=== PATIENT | female | born 1990 | race Caucasian/White ===

== ENCOUNTER 2019-11-28 17:40 | Inpatient (IN) | payer OTHER, SELFPAY ==
[2019-11-28] VITALS (10 sets, daily range): BP systolic 91–131; BP diastolic 37–86; PULSE 109–121; TEMP 37.4; BMI 49.5
[2019-11-28 18:52] LABS: Basophils Percent Auto 0.3 % (0.2-1.2); Eosinophils Absolute Auto 0.1 K/mm3 (0-0.3); Eosinophils Percent Auto 0.6 % (0-4.4); Hematocrit 39.4 % (37.0-47.0); Hemoglobin 13.4 g/dL (12.0-15.0); Immature Granulocyte Absolute 0.05 K/mm3 (0.00-0.031); Immature Granulocyte Percent A 0.4 % (0-0.5); Lymphocytes Absolute Auto 1.95 K/mm3 (0.9-3.2); Mean Corpuscular Hemoglobin 31.2 pg (26-34); Mean Corpuscular Volume 91.6 fl (80-100); Monocytes Absolute Auto 0.9 K/mm3 (0.1-0.6); Monocytes Percent Auto 6.1 % (2.6-8.5); Neutrophils Percent Auto 78.6 % (45.5-73.1); Platelet Count Result 232 k/mm3 (150-375); White Blood Count 13.9 K/mm3 (4.5-10.0)
[2019-11-28 19:04] LABS: Blood Urea Nitrogen 11 mg/dL (7-17); Carbon Dioxide 18 mmol/L (22-30); Chloride 109 mmol/L (98-107); Estimated CRCL calculation 157 ml/min; Estimated Glomerular Filt Rate > 60; Glucose 97 mg/dL (65-105); Potassium 3.7 mmol/L (3.4-5.0); Sodium 135 mmol/L (137-145)
[2019-11-28] MEDS: DINOPROSTONE 10 MG VAG INSERT VAGINAL (19:17)
[2019-11-28] MEDS: ZOLPIDEM TARTRATE 5 MG TABLET PO (22:21)
[2019-11-29] VITALS (261 sets, daily range): BP systolic 86–172; BP diastolic 43–153; PULSE 91–144; TEMP 36.4–37.7; O2SAT 94–100
[2019-11-29 03:10] LABS: Alanine Aminotransferase 15 U/L (4-35); Albumin Level 3.3 g/dL (3.5-5.1); Alkaline Phosphatase 161 U/L (38-126); Aspartate Amino Transferase 26 U/L (14-36); Bilirubin,Total 0.3 mg/dL (0.2-1.3); Blood Urea Nitrogen 11 mg/dL (7-17); Carbon Dioxide 19 mmol/L (22-30); Chloride 108 mmol/L (98-107); Estimated CRCL calculation 157 ml/min; Estimated Glomerular Filt Rate > 60; Glucose 115 mg/dL (65-105); Potassium 3.9 mmol/L (3.4-5.0); Sodium 135 mmol/L (137-145)
[2019-11-29] MEDS: FAMOTIDINE 20 MG/2 ML VIAL IV PUSH ×2 (05:23→21:01)
[2019-11-29] MEDS: LACTATED RINGERS 1,000 ML 125 ML IV CONT ×3 (05:46→19:40)
[2019-11-29] MEDS: OXYTOCIN 30 UNITS/NS 500 ML 30 UNITS/500 ML BAG IV CONT (05:47)
--- NOTE | 2019-11-29 06:40 | PM.IMHP ---
H&P: HPI History of Present Illness Chief complaint: Induction of Labor Narrative: Anabel Hoff is a 29 year old female whose last menstrual period is 03/01/2019, EDC is 12/06/2019, presents at 30 weeks gestation for induction of labor. She has had mildly elevated blood pressures with negative PIH labs. She is negative for group B strep Review of Systems Review of Systems: All systems reviewed & are unremarkable except as noted in HPI and below PMFSH Family History Family History Other No pertinent family history Social History Social History Smoking status: Never smoker Substance use: never Gender identity (if verbalized by the patient): Female Spiritual care concerns: No Meds Home Medications and Allergies Home Medications Medication Instructions Recorded Confirmed Type PNV cmb#95-ferrous fumarate-FA 1 tablet PO DAILY 11/10/19 11/10/19 History [] omeprazole 20 mg PO DAILY 11/10/19 11/10/19 History Allergies Allergy/AdvReac Type Severity Reaction Status Date / Time No Known Allergies Allergy Verified 11/10/19 14:33 Vital Signs Vital Signs - 24 hr 11/28/19 18:51 11/28/19 19:00 11/28/19 19:15 Temperature Pulse Rate 114 H 113 H 114 H Blood Pressure 129/86 126/86 131/85 11/28/19 19:26 11/28/19 20:27 11/28/19 20:30 Temperature 99.4 F Pulse Rate 117 H 121 H Blood Pressure 127/77 91/37 L 11/28/19 20:45 11/28/19 21:00 11/28/19 21:15 Temperature Pulse Rate 111 H 109 H 112 H Blood Pressure 116/73 124/73 121/71 11/28/19 23:54 11/29/19 00:16 11/29/19 01:13 Temperature 99.3 F 99.7 F H Pulse Rate 119 H Blood Pressure 117/61 11/29/19 02:32 11/29/19 02:48 11/29/19 03:50 Temperature 98.5 F Pulse Rate 115 H 114 H Blood Pressure 135/93 H 120/52 L 11/29/19 05:27 11/29/19 05:28 11/29/19 06:36 Temperature 98.6 F Pulse Rate 118 H 134 H Blood Pressure 139/83 107/74 Exam Const: General: no acute distress Eyes: General: appearance normal, both eyes and all related structures Neck: Neck: supple and no JVD Thyroid: thyroid normal Resp: Effort & Inspection: normal respiratory effort Auscultation: clear to auscultation bilaterally Cardio: Rate: regular rate Rhythm: regular rhythm GI: Inspection: normal to inspection (Gravid soft uterus) Percussion: Yes normal to percussion Auscultation: normoactive bowel sounds : General: Yes other (Cervix 1/40%/-3. AROM bloody. FHTs reassuring) Skin: General skin exam: no rashes or lesions noted Extrem: General: normal to inspection and no edema Psych: Mental Status: mental status grossly normal Affect: normal affect H&P: Results Labs Labs: Short CBC 11/28/19 Range/Units 18:41 WBC 13.9 H (4.5-10.0) K/mm3 Hgb 13.4 (12.0-15.0) g/dL Hct 39.4 (37.0-47.0) % Plt Count 232 (150-375) k/mm3 BMP 11/28/19 11/29/19 18:41 02:44 Sodium 135 L 135 L Potassium 3.7 3.9 Chloride 109 H 108 H Carbon Dioxide 18 L 19 L BUN 11 11 Creatinine 0.50 L 0.50 L Glucose 97 115 H Calcium 9.0 9.0 Liver Function 11/29/19 Range/Units 02:44 Total Bilirubin 0.3 (0.2-1.3) mg/dL AST 26 (14-36) U/L ALT 15 (4-35) U/L Alkaline Phosphatase 161 H (38-126) U/L Albumin 3.3 L (3.5-5.1) g/dL Assessment and Plan Additional Plan Impression: Term with gestational hypertension Plan: Medical induction of labor. Spontaneous vaginal is expected. PIH labs were drawn and are normal. She has an epidural candidate
--- NOTE | 2019-11-29 07:15 | WPDANESEPP ---
Anes - Eval Pre Procedure Procedure: labor epidural Date/Time: 11/29/19 07:15 Surgeon: sherie Preop Diagnosis: pain during labor Pre Op Diagnosis: Induction of Labor Patient Data Age: 29 Gender: F Height: 1.52 m Weight: 115 kg Last Vital Signs Temp 37.0 C 11/29/19 05:27 Pulse 134 H 11/29/19 06:36 BP 107/74 11/29/19 06:36 Allergies Allergy/AdvReac Type Severity Reaction Status Date / Time No Known Allergies Allergy Verified 11/10/19 14:33 Home Medications Medication Instructions Recorded Confirmed Type PNV cmb#95-ferrous fumarate-FA 1 tablet PO DAILY 11/10/19 11/10/19 History [] omeprazole 20 mg PO DAILY 11/10/19 11/10/19 History Laboratory Tests 11/28/19 11/28/19 11/28/19 18:41 18:41 18:41 WBC 13.9 K/mm3 H K/mm3 (4.5-10.0) RBC 4.30 M/mm3 M/mm3 (4.2-5.4) Hgb 13.4 g/dL g/dL (12.0-15.0) Hct 39.4 % % (37.0-47.0) MCV 91.6 fl fl (80-100) MCH 31.2 pg pg (26-34) MCHC 34.0 g/dl g/dl (32-36) RDW 14.0 % % (11.5-14.5) Plt Count 232 k/mm3 k/mm3 (150-375) MPV 11.0 fl H fl (7.4-10.4) Immature Gran % (Auto) 0.4 % % (0-0.5) Neut % (Auto) 78.6 % H % (45.5-73.1) Lymph % (Auto) 14.0 % L % (18.3-44.2) [place] % (Auto) 6.1 % % (2.6-8.5) Eos % (Auto) 0.6 % % (0-4.4) Baso % (Auto) 0.3 % % (0.2-1.2) Lymph # (Auto) 1.95 K/mm3 K/mm3 (0.9-3.2) [place] # (Auto) 0.9 K/mm3 H K/mm3 (0.1-0.6) Eos # (Auto) 0.1 K/mm3 K/mm3 (0-0.3) Baso # (Auto) 0.0 K/mm3 K/mm3 (0.0-0.1) Abs Immat Gran (auto) 0.05 K/mm3 H K/mm3 (0.00-0.031) Absolute Neuts (auto) 11.0 K/mm3 H K/mm3 (1.3-6.7) Absolute Nucleated RBC 0.0 K/mm3 K/mm3 (0.0-0.012) Nucleated RBC % 0.0 % % (0.0-0.2) Sodium 135 mmol/L L mmol/L (137-145) Potassium 3.7 mmol/L mmol/L (3.4-5.0) Chloride 109 mmol/L H mmol/L (98-107) Carbon Dioxide 18 mmol/L L mmol/L (22-30) BUN 11 mg/dL mg/dL (7-17) Creatinine 0.50 mg/dL L mg/dL (0.7-1.0) Estim Creat Clear Calc 157 ml/min ml/min Estimated GFR > 60 (59 - ) Glucose 97 mg/dL mg/dL (65-105) Uric Acid 6.0 mg/dL mg/dL (2.5-7.5) Calcium 9.0 mg/dL mg/dL (8.4-10.2) Total Bilirubin AST ALT Alkaline Phosphatase Total Protein Albumin RPR Pending Blood Type Antibody Screen 11/28/19 11/29/19 18:41 02:44 WBC RBC Hgb Hct MCV MCH MCHC RDW Plt Count MPV Immature Gran % (Auto) Neut % (Auto) Lymph % (Auto) [place] % (Auto) Eos % (Auto) Baso % (Auto) Lymph # (Auto) [place] # (Auto) Eos # (Auto) Baso # (Auto) Abs Immat Gran (auto) Absolute Neuts (auto) Absolute Nucleated RBC Nucleated RBC % Sodium 135 mmol/L L mmol/L (137-145) Potassium 3.9 mmol/L mmol/L (3.4-5.0) Chloride 108 mmol/L H mmol/L (98-107) Carbon Dioxide 19 mmol/L L mmol/L (22-30) BUN 11 mg/dL mg/dL (7-17) Creatinine 0.50 mg/dL L mg/dL (0.7-1.0) Estim Creat Clear Calc 157 ml/min ml/min Estimated GFR > 60 (59 - ) Glucose 115 mg/dL H mg/dL (65-105) Uric Acid Calcium 9.0 mg/dL mg/dL (8.4-10.2) Total Bilirubin 0.3 mg/dL mg/dL (0.2-1.3) AST 26 U/L U/L (14-36) ALT 15 U/L U/L (4-35) Alkaline Phosphatase 161 U/L H U/L (38-126) Total Protein 6.0 g/dL L g/dL (6.3-8.2) Albumin 3.3 g/dL L g/dL (3.5-5.1) RPR
--- NOTE | 2019-11-29 13:10 | P.PNOB_ITS ---
OB - PN: Subj Subjective Date/time seen: 11/29/19 13:10 fhts reassuring iupc/epidural in Patient comments: no complaints OB - PN: Obj Data Labs CBC & Chem 7: 11/28/19 18:41 11/29/19 02:44 Labs: Laboratory Results - last 24 hr 11/28/19 11/28/19 11/28/19 18:41 18:41 18:41 WBC 13.9 H RBC 4.30 Hgb 13.4 Hct 39.4 MCV 91.6 MCH 31.2 MCHC 34.0 RDW 14.0 Plt Count 232 MPV 11.0 H Immature Gran % (Auto) 0.4 Neut % (Auto) 78.6 H Lymph % (Auto) 14.0 L [place] % (Auto) 6.1 Eos % (Auto) 0.6 Baso % (Auto) 0.3 Lymph # (Auto) 1.95 [place] # (Auto) 0.9 H Eos # (Auto) 0.1 Baso # (Auto) 0.0 Abs Immat Gran (auto) 0.05 H Absolute Neuts (auto) 11.0 H Absolute Nucleated RBC 0.0 Nucleated RBC % 0.0 Sodium 135 L Potassium 3.7 Chloride 109 H Carbon Dioxide 18 L BUN 11 Creatinine 0.50 L Estim Creat Clear Calc 157 Estimated GFR > 60 Glucose 97 Uric Acid 6.0 Calcium 9.0 Total Bilirubin AST ALT Alkaline Phosphatase Total Protein Albumin Blood Type O Positive Antibody Screen Negative 11/29/19 02:44 WBC RBC Hgb Hct MCV MCH MCHC RDW Plt Count MPV Immature Gran % (Auto) Neut % (Auto) Lymph % (Auto) [place] % (Auto) Eos % (Auto) Baso % (Auto) Lymph # (Auto) [place] # (Auto) Eos # (Auto) Baso # (Auto) Abs Immat Gran (auto) Absolute Neuts (auto) Absolute Nucleated RBC Nucleated RBC % Sodium 135 L Potassium 3.9 Chloride 108 H Carbon Dioxide 19 L BUN 11 Creatinine 0.50 L Estim Creat Clear Calc 157 Estimated GFR > 60 Glucose 115 H Uric Acid Calcium 9.0 Total Bilirubin 0.3 AST 26 ALT 15 Alkaline Phosphatase 161 H Total Protein 6.0 L Albumin 3.3 L Blood Type Antibody Screen OB - PN A/P Time Spent With Patient Time: Total time spent is greater than 50% in coordination of care (as documented) at patient's floor/unit and/or counseling patient:
[2019-11-29 13:21] LABS: Rapid Plasma Reagin Non-Reactive (NonReactive)
--- NOTE | 2019-11-29 16:09 | PM.OBPNVD ---
OB - PN: Subj Subjective Date/time seen: 11/29/19 16:09 cx 3.5 fhts reassuring increase pit OB - PN: Obj Data Labs CBC & Chem 7: 11/28/19 18:41 11/29/19 02:44 Labs: Laboratory Results - last 24 hr 11/28/19 11/28/19 11/28/19 18:41 18:41 18:41 WBC 13.9 H RBC 4.30 Hgb 13.4 Hct 39.4 MCV 91.6 MCH 31.2 MCHC 34.0 RDW 14.0 Plt Count 232 MPV 11.0 H Immature Gran % (Auto) 0.4 Neut % (Auto) 78.6 H Lymph % (Auto) 14.0 L [place] % (Auto) 6.1 Eos % (Auto) 0.6 Baso % (Auto) 0.3 Lymph # (Auto) 1.95 [place] # (Auto) 0.9 H Eos # (Auto) 0.1 Baso # (Auto) 0.0 Abs Immat Gran (auto) 0.05 H Absolute Neuts (auto) 11.0 H Absolute Nucleated RBC 0.0 Nucleated RBC % 0.0 Sodium 135 L Potassium 3.7 Chloride 109 H Carbon Dioxide 18 L BUN 11 Creatinine 0.50 L Estim Creat Clear Calc 157 Estimated GFR > 60 Glucose 97 Uric Acid 6.0 Calcium 9.0 Total Bilirubin AST ALT Alkaline Phosphatase Total Protein Albumin RPR Non-reactive Blood Type Antibody Screen 11/28/19 11/29/19 18:41 02:44 WBC RBC Hgb Hct MCV MCH MCHC RDW Plt Count MPV Immature Gran % (Auto) Neut % (Auto) Lymph % (Auto) [place] % (Auto) Eos % (Auto) Baso % (Auto) Lymph # (Auto) [place] # (Auto) Eos # (Auto) Baso # (Auto) Abs Immat Gran (auto) Absolute Neuts (auto) Absolute Nucleated RBC Nucleated RBC % Sodium 135 L Potassium 3.9 Chloride 108 H Carbon Dioxide 19 L BUN 11 Creatinine 0.50 L Estim Creat Clear Calc 157 Estimated GFR > 60 Glucose 115 H Uric Acid Calcium 9.0 Total Bilirubin 0.3 AST 26 ALT 15 Alkaline Phosphatase 161 H Total Protein 6.0 L Albumin 3.3 L RPR Blood Type O Positive Antibody Screen Negative OB - PN A/P Time Spent With Patient Time: Total time spent is greater than 50% in coordination of care (as documented) at patient's floor/unit and/or counseling patient:
[2019-11-30] VITALS (158 sets, daily range): BP systolic 76–168; BP diastolic 39–142; PULSE 25–253; RESP 16–20; TEMP 36.6–37.7; O2SAT 87–100
[2019-11-30] MEDS: LACTATED RINGERS 1,000 ML 125 ML IV CONT (01:05)
[2019-11-30] MEDS: AMPICILLIN 2 GM/NS 100 ML 2 GM/100 ML BAG IVPB (01:05)
[2019-11-30] MEDS: AMPICILLIN 1 GM/NS 50 ML 1 GM/50 ML BAG IVPB (04:31)
--- NOTE | 2019-11-30 06:08 | PM.OBPNVD ---
OB - PN: Subj Subjective Date/time seen: 11/30/19 06:08 Interval history: cx remains 4 cm offered section risks/benefits given OB - PN: Obj Data Labs CBC & Chem 7: 11/28/19 18:41 11/29/19 02:44 Labs: Laboratory Results - last 24 hr 11/28/19 18:41 RPR Non-reactive OB - PN A/P Time Spent With Patient Time: Total time spent is greater than 50% in coordination of care (as documented) at patient's floor/unit and/or counseling patient:
--- NOTE | 2019-11-30 06:42 | WPDANESEFPP ---
Anes - Eval Final PreProcedure Day of Procedure 11/30/19 06:42 Patient weight: morbidly obese Heart: regular rate and rhythm Lungs: clear to auscultation Airway: Mallampati scale class II Neurological: alert and oriented Last oral intake: >/= 8 hours ASA classification: III Emergent: no Anesthetic plan: proceed Anesthesia type and monitoring: regional epidural and standard monitoring Informed Consent: The patient's anesthetic plan and its attendant risks and benefits were discussed with the patient/family/POA. Questions were solicited and answers provided to the satisfaction of the patient/family/POA.
--- NOTE | 2019-11-30 07:37 | P.OP_ITS ---
Procedure Note - Detailed Date of procedure: 11/30/19 Pre-op diagnosis: Induction of Labor Surgeon: Dante Smith MD Postop diagnosis: Arrest of dilatation Procedure: Primary low transverse section Q BL: 370cc Anesthesia: Epidural Findings: Female infant 7 lb 13 oz. Apgars 5 and 9 at 1 and 5 minutes respectively Complications: None the Description of procedure: After failing induction of labor, the patient was brought to the operating room. She was placed in the door in the supine posit ion. Under excellent epidural anesthesia the abdomen was entered in Pfannenstiel fashion progressive layers to the fascia. The fascia was incised in upward outward fashion bilaterally. Underlying muscles sharply dissected. Parietal peritoneum entered by Glenna clamps and by sharp dissection. This carried superiorly and inferiorly to the dome of the bladder. Bladder blade was formed bladder blade returned. A low-transverse incision made and the head delivered in the BOZENA position. Anterior posterior shoulder delivered spontaneously. Cord clamped x2 and cut. Infant passed off the table given Apgars of 5 [id number] and 9 [id number]. Cord blood was drawn. Placenta delivered intact manually. Uterus delivered from the abdomen wrapped in a moist towel. After assuring no debris remained in the uterus, the uterus was closed with continuous with continuous running locking 0 Vicryl from lateral edge to lateral edge. This was followed by a 2nd imbricating running locking 0 Vicryl from lateral edge to lateral edge. Hemostasis was assured. The laps removed and accounted for. The ovaries and tubes appeared within normal limits. The uterus returned to the abdomen. The uterine hysterotomy incision inspected 1 last time and noted be hemostatic. The fascia closed with continuous running 0V Vicryl from lateral edge to midline bilaterally. Irrigation subcutaneous layer. Skin closed with 4 O Monocryl and glue. Q BL was 370cc. All sponge, needle, instrument counts were correct. There were no immediate complications
[2019-11-30] MEDS: MEPERIDINE HCL INJ 50 MG/ML AMPUL 25 MG IV PUSH (08:00)
--- NOTE | 2019-11-30 10:00 | OBPPTRN ---
Patient transferred to post room # 285 via stretcher. Support person present. Oriented to unit, room, information board, rooming in, admission packet and security measures. Patient verbalizes understanding.
[2019-11-30] MEDS: OXYTOCIN 30 UNITS/NS 500 ML 30 UNITS/500 ML BAG 125 UNITS IV CONT (12:18)
[2019-11-30] MEDS: IBUPROFEN 600 MG TABLET PO ×2 (12:20→21:12)
[2019-11-30] MEDS: DEXTROSE 5%/0.45% SOD CHL 1,000 ML 125 ML IV CONT (14:22)
[2019-11-30] MEDS: DOCUSATE SODIUM 100 MG CAPSULE PO (16:35)
[2019-11-30] MEDS: SIMETHICONE 80 MG TAB.CHEW PO (19:30)
[2019-12-01 03:50] VITALS: BP 92/58; PULSE 110; RESP 16; TEMP 36.3; O2SAT 97
[2019-12-01 03:50] LABS: Basophils Percent Auto 0.2 % (0.2-1.2); Eosinophils Absolute Auto 0.1 K/mm3 (0-0.3); Eosinophils Percent Auto 0.7 % (0-4.4); Hematocrit 32.7 % (37.0-47.0); Immature Granulocyte Percent A 0.6 % (0-0.5); Lymphocytes Percent Auto 10.6 % (18.3-44.2); Mean Corpuscular HGB Conc 33.6 g/dl (32-36); Mean Corpuscular Hemoglobin 31.5 pg (26-34); Mean Corpuscular Volume 93.7 fl (80-100); Mean Platelet Volume 10.9 fl (7.4-10.4); Monocytes Absolute Auto 1.4 K/mm3 (0.1-0.6); Monocytes Percent Auto 8.5 % (2.6-8.5); Neutrophils Absolute Auto 12.8 K/mm3 (1.3-6.7); Neutrophils Percent Auto 79.4 % (45.5-73.1); Platelet Count Result 184 k/mm3 (150-375); Red Blood Count 3.49 M/mm3 (4.2-5.4); Red Cell Distribution Width 14.1 % (11.5-14.5); White Blood Count 16.1 K/mm3 (4.5-10.0)
[2019-12-01] MEDS: IBUPROFEN 600 MG TABLET PO ×3 (04:01→22:51)
--- NOTE | 2019-12-01 06:45 | P.PNOB_ITS ---
OB - PN: Subj Subjective Date/time seen: 12/01/19 06:45 Patient comments: no complaints and pain well controlled baby status: doing well and nursing well OB - PN: Obj Data Labs CBC & Chem 7: 12/01/19 03:36 11/29/19 02:44 Labs: Laboratory Results - last 24 hr 12/01/19 03:36 WBC 16.1 H RBC 3.49 L Hgb 11.0 L Hct 32.7 L MCV 93.7 MCH 31.5 MCHC 33.6 RDW 14.1 Plt Count 184 MPV 10.9 H Immature Gran % (Auto) 0.6 H Neut % (Auto) 79.4 H Lymph % (Auto) 10.6 L [place] % (Auto) 8.5 Eos % (Auto) 0.7 Baso % (Auto) 0.2 Lymph # (Auto) 1.70 [place] # (Auto) 1.4 H Eos # (Auto) 0.1 Baso # (Auto) 0.0 Abs Immat Gran (auto) 0.10 H Absolute Neuts (auto) 12.8 H Absolute Nucleated RBC 0.0 Nucleated RBC % 0.0 OB - PN A/P Plan day: 1 Plan: routine care Time Spent With Patient Time: Total time spent is greater than 50% in coordination of care (as documented) at patient's floor/unit and/or counseling patient: Time with patient: less than 15 minutes Review of Systems Review of Systems: All systems reviewed & are unremarkable except as noted in HPI and below Exam Const: General: no acute distress Eyes: General: appearance normal, both eyes and all related structures Neck: Neck: supple and no JVD Thyroid: thyroid normal Resp: Effort & Inspection: normal respiratory effort Auscultation: clear to auscultation bilaterally Cardio: Rate: regular rate Rhythm: regular rhythm GI: Inspection: normal to inspection and incision (cdi) Percussion: Yes normal to percussion : General: Yes other (flow light) Skin: General skin exam: no rashes or lesions noted Extrem: General: normal to inspection and no edema Psych: Mental Status: mental status grossly normal Affect: normal affect
[2019-12-01 08:00] VITALS: BP 102/68; PULSE 68; RESP 18; TEMP 36.4
--- NOTE | 2019-12-01 08:15 | PC.NURSE ---
Mother called out for assist with feeding, reporting is not eagerly latching and using the nipple shield for all feedngs. Mother has discomfort with feeding and is on and off during feeding with long pausing. Both areolas are firm and edematous. Reviewed infant feeding cues, frequencies, duration of feedings, feeding elimination flow sheet, and signs of adequate intake. Demonstrated stimulation techniques to wake infant for feeding. Assisted with infant to breast. Reviewed positioning/alignment in football, holding breast in C hold and guided asymmetrical latch on. Several attempts made, was unable to latch correctly, infant could not draw nipple in deeply due to edema to areolas. Infant was sleepy and made minimal effort to latch or suckle. Discussed nipple shield precautions and possible complications. Instructions given on application and cleaning of shield. Patient able to return demonstration on proper application of shield. Discussed the need to initiate pumping if infant continues to nurse with the shield. Patient verbalizes understanding. With shield in place, was able to latch. Discussed infant is not latched a deeply as needed. Infant nursed eagerly for short bursts occasional swallowing noted. Reviewed signs of a correct latch, effective nursing and suck swallow ratio. Nipple care reviewed. Discussed feeding options at this time, parents choose to supplement after each feeding.
[2019-12-01] MEDS: DOCUSATE SODIUM 100 MG CAPSULE PO ×2 (08:16→17:18)
[2019-12-01] MEDS: MULTIVIT/MIN/PREN/FOL AC/IRON TABLET 1 TAB PO (08:16)
[2019-12-01] MEDS: SIMETHICONE 80 MG TAB.CHEW PO ×2 (08:16→17:17)
--- NOTE | 2019-12-01 09:10 | PC.NURSE ---
Assisted mother with pumping due to ineffective feeding/nipple shield use. Instructions given on breast pump care and usage, pumping schedule, nipple care, and collection and storage of breast milk. Encouraged [id number], breast massage and manual expression to stimulate supply. Assessed patient for correct flange size, placement and draw. Patient verbalizes and demonstrates understanding of instructions.
--- NOTE | 2019-12-01 09:22 | WPDANLDPN2 ---
Anes-Prog Note L&D Date/Time: 12/01/19 09:22 Comfortable throughout: section Neuraxial method: spinal Neuro status: Neuro function grossly intact. Cardiovascular status: normal Respiratory status: normal Airway patency: baseline Mental status: baseline Post-Op hydration status: normal Vital Signs: Last Vital Signs Temp 97.4 F L 12/01/19 03:50 Pulse 110 H 12/01/19 03:50 Resp 16 12/01/19 03:50 BP 92/58 L 12/01/19 03:50 Pulse Ox 97 12/01/19 03:50 I/O: Intake & Output 11/30/19 12/01/19 12/01/19 23:59 07:59 15:59 Intake Total 4800 1000 Output Total 2175 200 Balance 2625 800 Post-procedural complaints: none Patient feedback: Patient satisfied with anesthetic care.
--- NOTE | 2019-12-01 09:22 | WPDANLDNPN2 ---
Anes-Prog Note L&D-Neuraxial Date/Time: 12/01/19 09:22 Neuraxial medications: intrathecal PF morphine Opiod-related complaints: none Patient feedback: Patient satisfied with post-operative pain management.
--- NOTE | 2019-12-01 12:45 | PC.NURSE ---
Mother called out for assist with feeding. Several attempts made, was unable to latch correctly, could not draw nipple in deeply due to edema to areolas. was sleepy and made minimal effort to latch or suckle. With shield in place, was able to latch. Infant nursed sleepily for short bursts, occasional swallowing noted followed with long pausing. Reviewed signs of a correct latch, effective nursing and suck swallow ratio. Nipple care reviewed. Advised to stimulate during feeding to keep infant awake and nursing. Parents will continue to supplement after each feeding. Mother is pumping after each feeding attempt.
[2019-12-01 19:30] VITALS: BP 122/77; PULSE 113; RESP 16; TEMP 36.5; O2SAT 99
[2019-12-02] MEDS: MULTIVIT/MIN/PREN/FOL AC/IRON TABLET 1 TAB PO (07:07)
[2019-12-02] MEDS: DOCUSATE SODIUM 100 MG CAPSULE PO ×2 (07:07→17:03)
[2019-12-02] MEDS: IBUPROFEN 600 MG TABLET PO ×3 (07:08→20:20)
--- NOTE | 2019-12-02 07:12 | PM.DS ---
DS: Admitting Diagnosis Admitting Diagnosis Admitting Diagnosis: term/gest htn DS: Summary Time Spent with Patient Time attestation: Total time spent providing and/or coordinating discharge services: Exam Const: General: no acute distress Eyes: General: appearance normal, both eyes and all related structures Neck: Neck: supple and no JVD Thyroid: thyroid normal Resp: Effort & Inspection: normal respiratory effort Auscultation: clear to auscultation bilaterally Cardio: Rate: regular rate Rhythm: regular rhythm GI: Inspection: non-distended GI Palp: Yes Soft to palpation, No Tenderness to palpation present (GI) and No Guarding due to palpation present (GI) Auscultation: normal bowel sounds : General: Yes bladder normal to palpation External Female Exam: normal external appearance Speculum Exam - Vagina: normal vaginal discharge and No vaginal bleeding Speculum Exam - Cervix: nontender Bimanual exam- vagina & uterus: bladder normal to palpation and No Cervical tenderness present OB/external & speculum: No vaginal bleeding Skin: General skin exam: no rashes or lesions noted Extrem: General: normal to inspection and no edema Psych: Mental Status: mental status grossly normal Affect: normal affect Discharge Plan Discharge Attending physician on discharge: Dante Smith Discharging Clinician: Dante Smith Patient Disposition: Home, Self-Care Activity: may shower, no straining, may drive after 2 weeks and pelvic rest Diet: heart healthy Wound Care Instructions: follow printed instructions Discharge Instructions: Call or return if temperature above 100.4? F, increased abdominal pain, increased vaginal bleeding or any new problems. Education: Mom and Baby Guide Given to: Mother Follow-Up: Call your delivering provider's office for an appointment to be seen in: 1 Week Mom and baby should come to the [facility] for the follow-up appointment. Appointment Date/Time: December 06, 2019 at 11:00 am What to expect at your follow-up visit: Physical Assessment Call [phone] if you are unable to keep your appointment time. BREAST CARE: 1. Wear a snug supportive bra. 2. For engorgement discomfort: Breast Feeding: A. Apply warm moist washcloths B. Express milk as needed to relieve engorgement C. Wear loose clothing 3. For sore nipples: A. Identify correct latch-on B. Apply warm moist washcloths before and after nursing C. Air dry nipples after nursing D. May apply Lansinoh cream to nipples ABDOMINAL INCISION: 1. Allow incision to air dry 2. Do NOT use lotions for powders on your incision 3. When showering, allow soap and water to run over the incision, but do not wash incision PERINEAL CARE: 1. Until bleeding stops, use your felix bottle after urinating 2. Change your pad frequently throughout the day 3. No tub baths until seen by your physician - You may shower ACTIVITY: 1. Rest as much as possible. 2. Do not exercise or lift anything heavier than your baby (such as laundry or other children.) 3. Avoid stairs or driving as much as possible. 4. Do not put anything into the vagina. No douching, tampons, or sexual activity until seen by physician. NOTIFY PHYSICIAN IF YOU HAVE ANY QUESTIONS OR IF ANY OF THE FOLLOWING SYMPTOMS OCCUR: 1. If your incision becomes red, swollen, or more painful than what you have experienced in the hospital. 2. If your vaginal bleeding becomes foul smelling. 3. If your vaginal bleeding becomes more heavy than a period or if your bleeding changes from pink to bright red. However, you may pass an occasional walnut-sized clot once or twice for the first week . 4. If you experience a sharp, shooting pain in you calves. 5. If you discover a hard, reddened area on your breast or if you experience flu-like symptoms. DIET: 1. Eat regular, well-balanced meals. 2. Drink plenty
[2019-12-02 08:30] VITALS: BP 127/87; PULSE 109; RESP 18; TEMP 36.9; O2SAT 99
[2019-12-02] MEDS: TETANUS,DIPHTHERIA,AC PERTUSSIS ADULT (0.5 ML) BOOSTRIX IM (10:50)
--- NOTE | 2019-12-02 13:00 | PC.NURSE ---
Consult with pt., mother reports she has chosen to pump and bottle feed due to nipple pain with feedings,difficulties with latching and the stress of not effectively nursing. Mother states she may attempt infant to breast once her milk is in and is more awake and making eager attempts to feed. Stressed regular pumping of every three hours for 15-20 min. until milk is established, then follow feeding schedule. Mother is feeding as required and waking to feed if needed. is currently meeting outcomes for weight, output, jaundice and feeding frequencies. Mother states she feels confident to continue feeding choice of pump and bottle feeding at home. Reviewed transition to breast milk, signs of adequate intake, and engorgement/relief. Instructed to call ICP if intake/output less than required. Reviewed regular medications mother is taking. Information provided per Jannie. Reviewed community resources on the [facility] website and in the Mom/Baby guide. Information on outpatient services provided. Mother has no further questions at this time. Assisted mother with a pump thru her insurance.
[2019-12-02 19:00] VITALS: BP 126/85; PULSE 109; RESP 18; TEMP 36.9; O2SAT 100
--- NOTE | 2019-12-02 19:00 | PC.NURSE ---
Patient viewed the discharge video Mother & Baby Care, The First Two Weeks . Patient was given the opportunity and encouraged to ask questions. Patient verbalized understanding of information shared and has been given the mother/baby guide for home reference.
[2019-12-03] MEDS: IBUPROFEN 600 MG TABLET PO ×2 (02:18→09:23)
[2019-12-03 09:15] VITALS: BP 133/83; PULSE 123; RESP 18; TEMP 37.4; O2SAT 98
[2019-12-03] MEDS: MULTIVIT/MIN/PREN/FOL AC/IRON TABLET 1 TAB PO (09:23)
[2019-12-03] MEDS: MEASLES,MUMPS,RUBELLA VACCINE 0.5 ML VIAL (09:31)
--- NOTE | 2019-12-03 10:45 | PM.OBPNVD ---
OB - PN: Subj Subjective Date/time seen: 12/03/19 10:45 Narrative: Pain OK. Tolerating diet. Would like to go home. OB - PN: Obj Data Labs CBC & Chem 7: 12/01/19 03:36 11/29/19 02:44 OB - PN A/P Plan Comments: A: POD#3, doing well. P: Home to f/u 4 weeks. Exam Narrative: Exam Narrative: AVSS ABD soft, nontender, fundus firm. Incision c/d/i. EXT nontender
--- NOTE | 2019-12-03 14:50 | PC.NURSE ---
Computer generated paper script for Alexandria written per Dr Barraza was left on chart at pt's discharge to home because Motrin and Alexandria were transmitted to pt's pharmacy per Dr. Leos today.
[2019-12-06 10:55] VITALS: BP 123/82; PULSE 109; RESP 20; TEMP 37.2; O2SAT 98
== END 2019-12-03 14:50 | disposition home or self-care (01) | DRG 540 ==
LOC: ANHOB2 12-03 14:25 → ANHLDR 12-05 18:21 → ANHOB2 12-05 18:21
PROVIDERS: Admitting Provider Obstetrics & Gynecology; PCP Family Medicine; Visit Provider Obstetrics & Gynecology
PROC: 10D00Z1 Extraction of Products of Conception, Low, Open Approach (ICD-10-PCS; CPT 59514; principal; 2019-11-30 07:00)
DX: O13.4 Gestational [pregnancy-induced] hypertension without significant proteinuria, complicating childbirth (principal); Z37.0 Single live birth; Z3A.39 39 weeks gestation of pregnancy; O99.214 Obesity complicating childbirth; E66.01 Morbid (severe) obesity due to excess calories; O42.12 Full-term premature rupture of membranes, onset of labor more than 24 hours following rupture; O61.0 Failed medical induction of labor; O62.0 Primary inadequate contractions
CPT/HCPCS: 36415; 80048; 80053; 84550; 85025; 86592; 86850; 86900; 86901; 90710; 90715; A9270; J0131; J0290; J2175; J2274; J2405; J2590; J2795; J3010; J7120

== ENCOUNTER 2020-02-25 13:23 | Emergency (ER) | payer OTHER, SELFPAY ==
[2020-02-25 13:30] VITALS: BP 134/84; PULSE 81; RESP 16; TEMP 36.6; O2SAT 100
--- NOTE | 2020-02-25 14:06 | ED.DIZZY ---
HPI - Dizziness General Chief Complaint: Dizziness Stated Complaint: keith/nausea/dizzy Source: patient and RN notes reviewed Limitations: no limitations History of Present Illness HPI Narrative: The patient, previously mostly healthy, presents with a 3-day history of dizziness, tilted vision. Patient notes she is G1, P1 and had a term delivery ~3 months ago, followed by 2 menses-the last of which 3 weeks ago, which was very heavy [she declines urine hCG]. She now has a 3-day history of mostly positional dizziness which comes on as her surroundings are tilted, and 15 minutes. No fever, tinnitus, hearing loss, FMH M?ni?re's, head injury, N/V/D, frequency/dysuria, but she had a faint morning headache. No lateralizing weakness, speech?visual changes ,cough, sore throat, earache, loss of taste/smell, calf pain/edema, CP. Patient vies go to higher level facility for higher level testing [like anemia, metabolic, scanning], which she declines today Related Data Allergies Allergy/AdvReac Type Severity Reaction Status Date / Time No Known Allergies Allergy Verified 11/10/19 14:33 Review of Systems Review of Systems: Narrative: General/Constitutional: No weight loss,fever Eyes: N0: Redness,discharge Ears/Nose/Throat: No: Epistaxis,ear discharge Respiratory: Denies: Hemoptysis Gastrointestinal: No Vomiting, Bleeding-rectal Skin: No Lumps, eruption Neurologic: No Focal Weakness,Sz Hematologic: Denies: Petechiae/Purpura Psychiatric: No: Suicida ideationl All Other Systems: Reviewed and Negative [facility] Past Medical History Medical History (Updated 02/25/20 @ 14:10 by Manoj Cortez MD) Intrauterine Morbid obesity with BMI of 45.0-49.9, adult Social History Social History Smoking status: Never smoker Substance use: never Gender identity (if verbalized by the patient): Female Spiritual care concerns: No Comments At time of signature, agree with nursing past medical, surgical, social and family history. There is no relevant family history pertinent to the presenting complaint Exam Narrative: Exam Narrative: General Appearance: Well appearing, No distress EYE: PERRLA, Conjunctiva clear, EOMI Neurological: A&O x3, CN II-X intact; reflexes symmetric 1+ bi/tri Musculoskeletal: Full ROM limited by habitus, 5/5 strength Ears: External ear normal Nose: Normal nose Mouth/Throat: Normal appearing, Normal lips Neck: Supple Respiratory: Airway patent, No respiratory distress Skin: Warm, Dry Psychiatric: Normal mood, Normal affect Course Vital Signs Vital signs: Vital Signs Temperature 97.9 F 02/25/20 13:30 Pulse Rate 81 02/25/20 13:30 Respiratory Rate 16 02/25/20 13:30 Blood Pressure 134/84 02/25/20 13:30 Pulse Oximetry 100 02/25/20 13:30 Temperature 97.9 F 02/25/20 13:30 Pulse Rate 81 02/25/20 13:30 Respiratory Rate 16 02/25/20 13:30 Blood Pressure 134/84 02/25/20 13:30 Pulse Oximetry 100 02/25/20 13:30 Discharge Plan Discharge Clinical Impression: Peripheral positional vertigo Qualifiers: Laterality: unspecified laterality Qualified Code(s): H81.399 - Other peripheral vertigo, unspecified ear Patient Disposition: Home, Self-Care Condition: Stable Instructions: Vertigo (ED) Additional Instructions: Advised to go to higher-level care facility to higher level testing [blood, imaging] if not improved , because for early diagnosis of serious problems [anemia, metabolic, sinus lesions, etc], clear specific symptoms do not develop until later Prescriptions: New meclizine 12.5 mg tablet 12.5 mg PO TID PRN (Reason: dizziness) Qty: 14 RF: 1 Other Ambulatory Orders: SARS-CoV-2 RNA, Qual RT-PCR (Routine) Location: Determined by Patient Ordered By: Manoj Cortez Interventions: Discharge Disposition Last Done: 02/25/20 14:18 Follow-up/Referrals: Joe Emerson
== END 2020-02-25 14:20 | disposition home or self-care (01) ==
PROVIDERS: Emergency Provider Emergency Medicine; PCP Family Medicine
DX: H81.399 Other peripheral vertigo, unspecified ear (principal); Z20.828 Contact with and (suspected) exposure to other viral communicable diseases; E66.01 Morbid (severe) obesity due to excess calories; Z68.41 Body mass index [BMI] 40.0-44.9, adult
CPT/HCPCS: 99213; G0463

== ENCOUNTER 2020-03-02 14:11 | Outpatient (CLI) | payer OTHER, SELFPAY ==
[2020-03-03 18:02] LABS: SARS-CoV-2 RNA PCR Negative
== END 2020-03-02 14:12 | disposition home or self-care (01) ==
LOC: CHSLAB 14:14
PROVIDERS: PCP Family Medicine; Visit Provider Family Medicine
DX: J06.9 Acute upper respiratory infection, unspecified (principal); Z20.828 Contact with and (suspected) exposure to other viral communicable diseases
CPT/HCPCS: 87635; C9803; U0003

== ENCOUNTER 2020-06-25 13:38 | Outpatient (CLI) | payer OTHER, SELFPAY ==
[2020-06-25 14:26] LABS: SARS-CoV-2 Ag Negative (Negative)
== END 2020-06-25 13:39 | disposition home or self-care (01) ==
LOC: CHSLAB 13:42
PROVIDERS: PCP Family Medicine; Visit Provider Internal Medicine
DX: Z20.828 Contact with and (suspected) exposure to other viral communicable diseases (principal)
CPT/HCPCS: 87426; C9803

== ENCOUNTER 2020-06-26 13:03 | Outpatient (CLI) | payer OTHER, SELFPAY ==
[2020-06-26 23:29] LABS: SARS-CoV-2 RNA PCR Negative
== END 2020-06-26 13:04 | disposition home or self-care (01) ==
LOC: CHSLAB 13:08
PROVIDERS: PCP Family Medicine; Visit Provider Family Medicine
DX: Z20.828 Contact with and (suspected) exposure to other viral communicable diseases (principal)
CPT/HCPCS: C9803; U0003

== ENCOUNTER 2020-10-15 10:35 | Outpatient (CLI) | payer OTHER, SELFPAY ==
[2020-10-15 12:01] LABS: SARS-CoV-2 RNA PCR Negative (Negative)
== END 2020-10-15 10:36 | disposition home or self-care (01) ==
LOC: CHSLAB 10:37
PROVIDERS: PCP Family Medicine; Visit Provider Nurse Practitioner Family
DX: J06.9 Acute upper respiratory infection, unspecified (principal); Z20.822 Contact with and (suspected) exposure to COVID-19
CPT/HCPCS: 87081; 87880; C9803; U0003; U0005

== ENCOUNTER 2020-10-17 15:38 | Outpatient (CLI) | payer OTHER, SELFPAY | END 2020-10-17 15:39 | disposition home or self-care (01) | LOC: CHSLAB 15:40 | PROVIDERS: PCP Family Medicine; Visit Provider Family Medicine | DX: R05 Cough (principal) | CPT/HCPCS: 87798 ==

== ENCOUNTER 2020-10-26 09:53 | Outpatient (CLI) | payer BC, MEDICAID, SELFPAY ==
--- NOTE | ~2020-10-26 | XR_ITS ---
EXAMINATION: XR chest 2V DATE: 10/26/2020 10:31 INDICATION: Cough TECHNIQUE: PA and lateral views of the chest are obtained. COMPARISON: 10/24/2017 FINDINGS: The lungs are free of acute opacities. There is no pleural effusion or pneumothorax. The ca rdiomediastinal silhouette is normal. There is mild thoracic spondylosis. There is a catheter in the right neck. IMPRESSION: 1. No acute cardiopulmonary abnormality. Reviewed, dictated and finalized at location A.
== END 2020-10-26 09:54 | disposition home or self-care (01) ==
PROVIDERS: PCP Family Medicine; Visit Provider Family Medicine
DX: R05 Cough (principal)
CPT/HCPCS: 71046

== ENCOUNTER 2020-12-19 12:22 | Outpatient (CLI) | payer OTHER, SELFPAY ==
--- NOTE | ~2020-12-19 | XR_ITS ---
EXAMINATION: XR chest 2V DATE: 12/19/2020 12:53 INDICATION: Cough. Shortness of breath. TECHNIQUE: Frontal and lateral views of the chest were obtained. COMPARISON: Chest 2 views 10/26/2020, chest CT 10/24/2017 FINDINGS: The chest demonstrates clear lungs without pneumonia, pleural effusion, or pneumothorax. Th e heart size is normal. IMPRESSION: 1. No acute cardiopulmonary disease. Reviewed, dictated and finalized at location A.
[2020-12-19 13:40] LABS: SARS-CoV-2 RNA PCR Negative (Negative)
== END 2020-12-19 12:23 | disposition home or self-care (01) ==
LOC: CHSLAB 12:26
PROVIDERS: PCP Family Medicine; Visit Provider Family Medicine
DX: R05 Cough (principal); Z20.822 Contact with and (suspected) exposure to COVID-19
CPT/HCPCS: 71046; C9803; U0003; U0005

== ENCOUNTER 2021-01-14 07:49 | Outpatient (CLI) | payer OTHER, SELFPAY ==
--- NOTE | 2021-01-14 11:49 | WPDPFTINT ---
PFT Procedure Performed PFT Procedure Performed Spirometry with Pre/Post Bronchodilator Plethysmography (Lung Vol) Diffusing Cap (DLCO) Flow Vol Loop PFT Interpretation This is a pulmonary function test with pre and post-bronchodilator spirometry, plethysmography and diffusing capacity. The test was performed and results interpreted in accordance with the 2019 and 2005 ATS/ERS Task Force guidelines respectively using the Global Lung Function Initiative-2012 reference equations. Patient demonstrated good effort and cooperation. Reproducibility criteria were met. The quality of the pre bronchodilator spirometry maneuver was Grade A and post bronchodilator spirometry maneuver was Grade A. Findings: Spirometry: The contour the inspiratory and expiratory flow tracing are normal. The pre bronchodilator FVC is 3.30 L, 101% predicted. The pre bronchodilator FEV1 is 2.83 L, 102% predicted. The FEV1: FVC ratio was 86%. The post bronchodilator FVC is 3.54 L, representing a 7% increase. The post bronchodilator FEV1 is 2.92 L, representing a 3% increase. Plethysmography: The total lung capacity is 4.57 L, 103% predicted. The functional residual capacity is 1.36 L, 57% predicted. The residual volume is 0.87 L, 72% predicted. Diffusing capacity: The absolute diffusion capacity is 23.2, 102% predicted. The diffusing capacity corrected for alveolar volume is 4.70, 93% predicted. Impression: The spirometry is normal without evidence of an obstructive abnormality. There is no significant improvement after inhaling a single dose of albuterol. The lung volumes are normal. The diffusing capacity is normal. There are no prior studies for comparison
== END 2021-01-14 07:50 | disposition home or self-care (01) ==
PROVIDERS: PCP Family Medicine; Visit Provider Family Medicine
DX: J45.20 Mild intermittent asthma, uncomplicated (principal)
CPT/HCPCS: 94060; 94726; 94729

== ENCOUNTER 2021-05-22 17:54 | Outpatient (CLI) | payer OTHER, SELFPAY ==
[2021-05-22 18:57] LABS: Influenza A QL RT-PCR Negative (Negative); Influenza B QL RT-PCR Negative (Negative); SARS-CoV-2 RNA PCR Negative (Negative)
== END 2021-05-22 17:55 | disposition home or self-care (01) ==
LOC: CHSLAB 18:00
PROVIDERS: PCP Family Medicine; Visit Provider Family Medicine
DX: J00 Acute nasopharyngitis [common cold] (principal); Z20.822 Contact with and (suspected) exposure to COVID-19
CPT/HCPCS: 87502; C9803; U0003; U0005

== ENCOUNTER 2021-06-24 08:46 | Outpatient (CLI) | payer OTHER, SELFPAY ==
[2021-06-24 09:28] LABS: SARS-CoV-2 Ag Negative (Negative)
== END 2021-06-24 08:47 | disposition home or self-care (01) ==
LOC: CHSLAB 08:47
PROVIDERS: PCP Family Medicine; Visit Provider Family Medicine
DX: R05.9 Cough, unspecified (principal); Z20.822 Contact with and (suspected) exposure to COVID-19
CPT/HCPCS: 87426; C9803

== ENCOUNTER 2021-06-28 08:30 | Outpatient (CLI) | payer OTHER, MEDICAID, SELFPAY ==
[2021-06-28 10:12] LABS: SARS-CoV-2 Ag Negative (Negative)
[2021-06-28 10:34] LABS: Influenza Control Valid (Valid)
== END 2021-06-28 08:31 | disposition home or self-care (01) ==
LOC: CHSLAB 08:32
PROVIDERS: PCP Family Medicine; Visit Provider Family Medicine
DX: R05.9 Cough, unspecified (principal); R06.02 Shortness of breath; Z20.822 Contact with and (suspected) exposure to COVID-19
CPT/HCPCS: 87426; 87804; C9803

== ENCOUNTER 2021-09-10 13:02 | Observation (INO) | payer OTHER, SELFPAY ==
[2021-09-10 13:46] VITALS: BP 122/71; PULSE 114
[2021-09-10 14:00] VITALS: BP 110/67; PULSE 115; RESP 20; TEMP 36.8; BMI 52.2
--- NOTE | 2021-09-10 14:00 | OBADM ---
This patient, Anabel Hoff, admitted to the OB room 115 for observation for nausea, vomiting, and diarrhea. Patient/family oriented to hospital policies and general routines including ID bracelet, bed and alarms, visiting hours, pain management, procedures, bathroom and other care routines, personal items, smoking policy, room service/diet, and visiting hours. Patient/Family are encouraged to report perceived risks to care and to ask questions if they do not understand what they are told or what they should do.
[2021-09-10] MEDS: DEXTROSE 5%/LACTATED RINGERS 500 ML 999 ML IV CONT (14:25)
[2021-09-10] MEDS: ONDANSETRON INJ 4 MG/2 ML VIAL IV PUSH (14:27)
[2021-09-10] MEDS: FAMOTIDINE 20 MG/2 ML VIAL IV PUSH (14:29)
[2021-09-10 14:39] VITALS: BP 120/76; PULSE 108
[2021-09-10 14:52] LABS: Basophils Percent Auto 0.2 % (0.2-1.2); Eosinophils Absolute Auto 0.1 K/mm3 (0-0.3); Eosinophils Percent Auto 0.4 % (0-4.4); Hematocrit 38.7 % (37.0-47.0); Hemoglobin 12.8 g/dL (12.0-15.0); Immature Granulocyte Absolute 0.06 K/mm3 (0.00-0.031); Immature Granulocyte Percent A 0.4 % (0-0.5); Lymphocytes Absolute Auto 0.79 K/mm3 (0.9-3.2); Lymphocytes Percent Auto 5.7 % (18.3-44.2); Mean Corpuscular HGB Conc 33.1 g/dl (32-36); Mean Corpuscular Hemoglobin 29.4 pg (26-34); Mean Corpuscular Volume 88.8 fl (80-100); Mean Platelet Volume 10.6 fl (7.4-10.4); Monocytes Absolute Auto 0.7 K/mm3 (0.1-0.6); Monocytes Percent Auto 4.9 % (2.6-8.5); Neutrophils Absolute Auto 12.2 K/mm3 (1.3-6.7); Neutrophils Percent Auto 88.4 % (45.5-73.1); Platelet Count Result 263 k/mm3 (150-375); Red Blood Count 4.36 M/mm3 (4.2-5.4); Red Cell Distribution Width 13.5 % (11.5-14.5); White Blood Count 13.9 K/mm3 (4.5-10.0)
[2021-09-10 15:02] LABS: Alanine Aminotransferase 30 U/L (4-35); Alkaline Phosphatase 159 U/L (38-126); Anion Gap 11 mmol/L (8-16); Aspartate Amino Transferase 30 U/L (14-36); Bilirubin,Total 0.6 mg/dL (0.2-1.3); Blood Urea Nitrogen 12 mg/dL (7-17); Calcium 8.9 mg/dL (8.4-10.2); Carbon Dioxide 19 mmol/L (22-30); Chloride 106 mmol/L (98-107); Estimated Glomerular Filt Rate > 60; Glucose 75 mg/dL (65-110); Potassium 3.8 mmol/L (3.4-5.0); Sodium 136 mmol/L (137-145)
[2021-09-10] MEDS: CALCIUM CARBONATE (TUMS) 500 MG (200 MG ELEMENTAL) PO (15:27)
[2021-09-10 15:38] LABS: Influenza A QL RT-PCR Negative (Negative); Influenza B QL RT-PCR Negative (Negative); SARS-CoV-2 RNA PCR Negative
--- NOTE | 2021-09-10 16:09 | PC.NURSE ---
Dr. Cholo Goode called to check on pt. Informed pt hasn't had an emesis since the Zofran was given, but still having heartburn that makes her feel nauseated. Pt has had some ice chips and a jello. IV fluids infusing. Pt had a reactive NST and some uterine irritability that decreased with the IV fluids. Monitor was discontinued for pt comfort. OK to discharge pt to home when she is feeling up to it.
--- NOTE | 2021-09-10 16:42 | PC.NURSE ---
Pt informed me she is ready to go home. Pt has tolerated some saltines and another jello, but the applesauce increased her heartburn. No additional emesis.
--- NOTE | 2021-09-12 07:42 | PM.OBTRLD ---
OB - Triage/Final Diagnosis Visit Information Date of evaluation: 09/10/21 Reason for evaluation: other (dehydration) Comments/Additional reasons for admission: I have assessed the risk for this patient, Anabel Hoff, and determined that she would benefit from observation care. Evaluation Laboratory results: Laboratory Tests 09/10/21 09/10/21 09/10/21 14:34 14:35 14:49 WBC 13.9 H RBC 4.36 Hgb 12.8 Hct 38.7 MCV 88.8 MCH 29.4 MCHC 33.1 RDW 13.5 Plt Count 263 MPV 10.6 H Immature Gran % (Auto) 0.4 Neut % (Auto) 88.4 H Lymph % (Auto) 5.7 L [place] % (Auto) 4.9 Eos % (Auto) 0.4 Baso % (Auto) 0.2 Lymph # (Auto) 0.79 L [place] # (Auto) 0.7 H Eos # (Auto) 0.1 Baso # (Auto) 0.0 Abs Immat Gran (auto) 0.06 H Absolute Neuts (auto) 12.2 H Absolute Nucleated RBC 0.0 Nucleated RBC % 0.0 Sodium 136 L Potassium 3.8 Chloride 106 Carbon Dioxide 19 L Anion Gap 11 BUN 12 Creatinine 0.40 L Estim Creat Clear Calc Not Reportable Estimated GFR > 60 Glucose 75 Calcium 8.9 Total Bilirubin 0.6 AST 30 ALT 30 Alkaline Phosphatase 159 H Total Protein 7.0 Albumin 4.0 Urine Color Urine Appearance Urine pH Ur Specific [place] Urine Protein Urine Glucose (UA) Urine Ketones Ur Blood (Man) Urine Nitrate Urine Bilirubin Urine Urobilinogen Leukocyte Esterase Rfl Urine RBC Urine WBC Urine WBC Clumps Ur Squamous Epith Cells Ur Transition Epith Cell Ur Renal Epithelial Cell [place] Biurate Crystals Calcium Carbonate Cryst Calcium Phosphate Cryst Calcium Oxalate Crystal Leucine Crystals Cystine Crystals Uric Acid Crystals Triple Phos Crystals Sulfonamide Crystals Cholesterol Crystals Talc Crystals Tyrosine Crystals Hippuric Acid Crystals Other Crystals Amorphous Sediment Other Sediment Urine Bacteria Cellular Casts Epithelial Casts Fatty Casts Hyaline Casts Granular Casts Waxy Casts RBC Casts WBC Casts Urine Starch Urine Mucus Urine Trichomonas Urine Yeast (Budding) Ur Oval Fat Bodies Influenza A (RT-PCR) Negative Influenza B (RT-PCR) Negative SARS-CoV-2 RNA (RT-PCR) Negative 09/10/21 19:02 WBC RBC Hgb Hct MCV MCH MCHC RDW Plt Count MPV Immature Gran % (Auto) Neut % (Auto) Lymph % (Auto) [place]osh[place] % (Auto) Eos % (Auto) Baso % (Auto) Lymph # (Auto) [place] # (Auto) Eos # (Auto) Baso # (Auto) Abs Immat Gran (auto) Absolute Neuts (auto) Absolute Nucleated RBC Nucleated RBC % Sodium Potassium Chloride Carbon Dioxide Anion Gap BUN Creatinine Estim Creat Clear Calc Estimated GFR Glucose Calcium Total Bilirubin AST ALT Alkaline Phosphatase Total Protein Albumin Urine Color Cancelled Urine Appearance Cancelled Urine pH Cancelled Ur Specific [place] Cancelled Urine Protein Cancelled Urine Glucose (UA) Cancelled Urine Ketones Cancelled Ur Blood (Man) Cancelled Urine Nitrate Cancelled Urine Bilirubin Cancelled Urine Urobilinogen Cancelled Leukocyte Esterase Rfl Cancelled Urine RBC Cancelled Urine WBC Cancelled Urine WBC Clumps Cancelled Ur Squamous Epith Cells Cancelled Ur Transition Epith Cell Cancelled Ur Renal Epithelial Cell Cancelled [place] Biurate Crystals Cancelled Calcium Carbonate Cryst Cancelled Calcium Phosphate Cryst Cancelled Calcium Oxalate Crystal Cancelled Leucine Crystals Cancelled Cystine Crystals Cancelled Uric Acid Crystals Cancelled Triple Phos Crystals Cancelled Sulfonamide Crystals Cancelled Cholesterol Crystals Cancelled Talc Crystals Cancelled Tyrosine Crystals Cancelled Hippuric Acid Crystals Cancelled Other Crystals Cancelled Amorphous Sediment Cancelled Other Sediment Cancelled Urine Bacteria Cancelled Cellular Casts Cancelled Ep
== END 2021-09-10 17:18 | disposition home or self-care (01) ==
PROVIDERS: Admitting Provider Obstetrics & Gynecology; PCP Family Medicine; Visit Provider Obstetrics & Gynecology
DX: O99.283 Endocrine, nutritional and metabolic diseases complicating pregnancy, third trimester (principal); E86.0 Dehydration; Z3A.34 34 weeks gestation of pregnancy; Z20.822 Contact with and (suspected) exposure to COVID-19
CPT/HCPCS: 36415; 80053; 85025; 87502; 96361; 96374; 96375; A9270; C9803; G0378; G0379; J2405; J7121; U0003; U0005

== ENCOUNTER 2021-10-15 07:41 | Outpatient (CLI) | payer OTHER, SELFPAY ==
[2021-10-15 08:05] LABS: Hematocrit 34.6 % (37.0-47.0); Hemoglobin 11.3 g/dL (12.0-15.0); Mean Corpuscular HGB Conc 32.7 g/dl (32-36); Mean Corpuscular Hemoglobin 27.6 pg (26-34); Mean Corpuscular Volume 84.6 fl (80-100); Mean Platelet Volume 10.7 fl (7.4-10.4); Platelet Count Result 253 k/mm3 (150-375); Red Blood Count 4.09 M/mm3 (4.2-5.4); Red Cell Distribution Width 14.2 % (11.5-14.5); White Blood Count 10.6 K/mm3 (4.5-10.0)
[2021-10-15 11:23] LABS: Rapid Plasma Reagin Non-Reactive (NonReactive)
== END 2021-10-15 07:42 | disposition home or self-care (01) ==
LOC: ANHLAB 07:43
PROVIDERS: PCP Family Medicine; Visit Provider Obstetrics & Gynecology
DX: O34.219 Maternal care for unspecified type scar from previous cesarean delivery (principal); Z3A.00 Weeks of gestation of pregnancy not specified
CPT/HCPCS: 36415; 85027; 86592; 86850; 86900; 86901

== ENCOUNTER 2021-10-16 05:23 | Inpatient (IN) | payer OTHER, SELFPAY ==
[2021-10-16] VITALS (46 sets, daily range): BP systolic 62–215; BP diastolic 23–181; PULSE 74–274; RESP 8–20; TEMP 36.2–36.8; O2SAT 94–100; BMI 55.3
--- NOTE | 2021-10-16 05:37 | LDADM ---
This patient, Anabel Hoff, was admitted to Labor/Delivery/Recovery 120 on 10/16/21 at 05:23. Plans for labor, pain management and were discussed with patient. Patient/family oriented to hospital policies and general routines including ID bracelet, bed and alarms, visiting hours, pain management, procedures, bathroom and other care routines, personal items, smoking policy, room service/diet and guest tray routines, security routines, and visiting hours. Patient/Family are encouraged to report perceived risks to care and to ask questions if they do not understand what they are told or what they should do. See OBIX for further documentation.
[2021-10-16] MEDS: LACTATED RINGERS 1,000 ML 125 ML IV CONT ×2 (05:53→07:01)
--- NOTE | 2021-10-16 06:56 | WPDANESEPPF ---
Anes - Initial Pre Proc Eval Procedure: Operation Date: 10/16/21 07:30 Proposed Procedures p Repeat Section with Tubal Ligation - Dante Goode MD Date/Time: 10/16/21 06:56 Surgeon: Dante Goode MD Pre Op Diagnosis: C Section Patient Data Age: 31 Gender: F Height: 1.52 m Weight: 128.5 kg Last Vital Signs Pulse 99 10/16/21 05:46 BP 116/58 L 10/16/21 05:46 Allergies Allergy/AdvReac Type Severity Reaction Status Date / Time No Known Allergies Allergy Verified 09/10/21 16:26 Home Medications Medication Instructions Recorded Confirmed Type PNV cmb#95-ferrous fumarate-FA 1 tablet PO DAILY 09/10/21 10/11/21 History [] labetalol 100 mg PO 1300 09/10/21 10/11/21 History labetalol 200 mg PO Q12H 09/10/21 10/11/21 History omeprazole 20 mg PO DAILY 09/10/21 10/11/21 History albuterol 90 mcg INHALATION 4-6XD PRN 10/11/21 10/11/21 History Patient hx anesthesia problems: none Family hx anesthesia problems: none Results Review: All pre-operative results and documents have been reviewed as part of the pre-operative evaluation. [facility] Past Medical History Medical History (Updated 10/16/21 @ 06:57 by Justin Longoria MD) Asthma HTN (hypertension) Intrauterine Morbid obesity with BMI of 45.0-49.9, adult Family History Family History Other No pertinent family history Social History Social History (System 07/04/20 @ 10:51 by Shelby Fernández) Smoking status: Never smoker Substance use: never Gender identity (if verbalized by the patient): Female Spiritual care concerns: No Anes - Eval Final PreProcedure Day of Procedure 10/16/21 06:56 Patient weight: super morbidly obese Heart: regular rate and rhythm Lungs: clear to auscultation and normal air movement Airway: Mallampati scale class II Neurological: alert and oriented Last oral intake: >/= 8 hours ASA classification: III Emergent: no Anesthetic plan: proceed Anesthesia type and monitoring: regional spinal Results Review: All pre-operative results and documents have been reviewed as part of the pre-operative evaluation. Informed Consent: The patient's anesthetic plan and its attendant risks and benefits were discussed with the patient/family/POA. Questions were solicited and answers provided to the satisfaction of the patient/family/POA.
--- NOTE | 2021-10-16 07:26 | PM.IMHP ---
H&P: HPI History of Present Illness Date/Time: 10/16/21 07:26 30-year-old multipara term for repeat section bilateral tubal ligation. She has a large baby. She passed her 3hour are 1hour GTT she has had hypertension taking labetalol 100 t.i.d. with good control she also takes Wellbutrin 300mg daily. She desires permanent and irreversible sterilization and we reviewed risks and benefits of full Chief Complaint: repeat and tubal ligation Review of Systems Review of Systems: All systems reviewed & are unremarkable except as noted in HPI and below PMFSH Past Medical History Medical History Asthma HTN (hypertension) Intrauterine Morbid obesity with BMI of 45.0-49.9, adult Family History Family History Other No pertinent family history Social History Social History Smoking status: Never smoker Substance use: never Gender identity (if verbalized by the patient): Female Spiritual care concerns: No Meds Home Medications and Allergies Home Medications Medication Instructions Recorded Confirmed Type PNV cmb#95-ferrous fumarate-FA 1 tablet PO DAILY 09/10/21 10/11/21 History [] labetalol 100 mg PO 1300 09/10/21 10/11/21 History labetalol 200 mg PO Q12H 09/10/21 10/11/21 History omeprazole 20 mg PO DAILY 09/10/21 10/11/21 History albuterol 90 mcg INHALATION 4-6XD PRN 10/11/21 10/11/21 History Allergies Allergy/AdvReac Type Severity Reaction Status Date / Time No Known Allergies Allergy Verified 09/10/21 16:26 Vital Signs Vital Signs - 24 hr 10/16/21 05:43 10/16/21 05:46 Pulse Rate 103 H 99 Blood Pressure 113/62 116/58 L Exam Const: General: no acute distress Eyes: General: appearance normal, both eyes and all related structures Neck: Neck: supple and no JVD Thyroid: thyroid normal Resp: Effort & Inspection: normal respiratory effort Auscultation: clear to auscultation bilaterally Cardio: Rate: regular rate Rhythm: regular rhythm GI: Inspection: non-distended GI Palp: Yes Soft to palpation, No Tenderness to palpation present (GI) and No Guarding due to palpation present (GI) Auscultation: normal bowel sounds : General: Yes bladder normal to palpation External Female Exam: normal external appearance Speculum Exam - Vagina: normal vaginal discharge and No vaginal bleeding Speculum Exam - Cervix: nontender Bimanual exam- vagina & uterus: bladder normal to palpation and No Cervical tenderness present OB/external & speculum: No vaginal bleeding Skin: General skin exam: no rashes or lesions noted Extrem: General: normal to inspection and no edema Psych: Mental Status: mental status grossly normal Affect: normal affect Assessment and Plan Additional Plan term with previous section and desires permanent sterilization Plan: Repeat low-transverse section and bilateral tubal ligation
--- NOTE | 2021-10-16 07:28 | WPDHPUPDATE1 ---
History and Physical Update Update Date/Time: 10/16/21 07:28 History and Physical has been reviewed, including an updated exam of the patient. There are NO changes in the patient's condition. Risks, benefits, and alternatives have been discussed and questions answered. Patient agrees to proceed with procedure.
--- NOTE | 2021-10-16 08:28 | P.OP_ITS ---
Procedure Note - Detailed Date of Procedure 10/16/21 Pre-op Diagnosis C Section Bilateral tubal ligation via Lawrence method Post-op Diagnosis Same Procedure Performed repeat low-transverse section and bilateral tubal ligation via modified Nori method Surgeon Danet Goode MD Anesthesia Spinal Indications this is a 31-year-old at term with previous section, large baby and who desires permanent irvin Findings male 9lb 12oz Apgars 9 and 9 at 1 and 5minutes respectively. Fair amount of scar tissue was seen in the pelvis Description of Procedure patient was prepped and draped in the normal sterile fashion and placed in the supine position. The previous Pfannenstiel incision was entered in a sharp dissection carried through the layers to the fascia. Fascia incised in upward fashion a appeared underlying muscles show and sharply dissected in prep peritoneum elevated clamped. This was entered superiorly and inferiorly down the bladder. Fair amount of omentum was seen in this was sharply dissected and packed the back. The bladder blade was placed bladder flap formed and a bladder blade returned. A low-transverse incision made the head delivered in the BOZENA position. Nuchal cord checked noted be loose x1 around the occiput. Anterior posterior shoulder delivered spontaneously and cord clamped x2 and cut and passed off the table given Apgars of 9 [id number] and 9 [id number]. Cord blood was drawn placenta delivered intact manually. Uterus delivered abdomen wrapped in moist towel. After assuring no membranes or debris remained in the uterus, the uterus was closed with continuous running 0 Vicryl from lateral edge to midline bilaterally. Irrigation in the subcutaneous layer. The fascia was closed with continuous running 0 Vicryl from lateral edge to midline bilaterally. Irrigation the subcutaneous layer again was performed the skin closed with 4 Monocryl and glue. QBL was 430cc. All sponge, needle, instrument counts were correct. There were no immediate complications Estimated Blood Loss 430 Drains No Packing No Pathology None sent Complications No immediate complications Condition Stable Disposition Floor
[2021-10-16] MEDS: OXYTOCIN 30 UNITS/NS 500 ML 30 UNITS/500 ML BAG 125 UNITS IV CONT (09:31)
[2021-10-16] MEDS: MORPHINE SULFATE INJ (*CRX) 10 MG/ML AMP 2 MG IV PUSH (10:34)
--- NOTE | 2021-10-16 10:50 | PC.NURSE ---
Patient transferred to post room #282 per stretcher from labor and delivery. Support person present. Oriented to unit, room, information board, rooming in, admission packet and security measures. Patient verbalizes understanding.
--- NOTE | 2021-10-16 11:04 | PC.NURSE ---
[id number] Introductions were made, then consulted with patient to assess needs related to as she recovers in room 120. Mother led the conversation with her experience feeding her infant so far. Mother works well with her with encouragement. Encouraged understanding of the benefits of skin to skin (unwrapping infant and placing vertically on her chest), responsive feeding and how to watch for early feeding signs, frequency of feeding on demand about every 8-12 times in 24 hours (every 2-3 hours), milk production, duration of feeding, signs of adequate intake/output and how to record on the feeding sheet. Reviewed positioning and ear, shoulder, hip alignment, supporting the breast, asymmetrical latch (off-center), and leading with the chin with a big open side gape. latched optimally to the right and left breast in a laid-back position. latches well and will maintain for about 5 min or latch take a few sucks and let the nipple fall out of his mouth, or latch shallow. On the stretcher it is difficult to get mother in a good position to breastfeed. She has very large and heavy breast. Mother was assisted to latch on both breast. Infant did not maintain was able to maintain latch without discomfort to mother. Nipple care reviewed with optimal latch and good positioning. Mother voiced wanting to stop attempting to breastfeed and desires attempting again once she get into a more comfortable bed and position. Reported to the primary L&D RN.
--- NOTE | 2021-10-16 13:23 | PC.NURSE ---
[id number] Consulted with patient to assess needs related to . Mother led conversation with her experience with feeding baby so far. Mother works well with her infant with encouragement. Reviewed working with , breast, nipples and how to protect the nipples with an optimal deep latch, good positioning, and good hand washing. Encouraged understanding the benefits of skin to skin, responding to feeding cues, frequencies of feeding 8-12 times in 24 hours (approximately 2-3 hours), duration of feedings, milk production, intake/output feeding sheet and signs of adequate intake encouraging swallowing at the breast. Reviewed positioning and alignment, supporting breast, off-centered (asymmetrical latch) and leading with the chin with big open wide gape. Nipple shield provided by nursery nurse to mother due to ineffective latching initially after a c/s. Discussed with mom the nipple shield precautions, possible complications associated with the risks and benefits. Reviewed practicing with a nipple shield, then without and how to protect the milk supply and production. Mom and baby guide referred to as a resource for using a nipple shield, out-patient services, community resources and when to call a provider. Mom voiced understanding of the importance of hand expression, nipple stimulation and initiating a pumping schedule if continues to nurse with the shield. Assisted mother with a towel under her breast in a football position with infant supported at nipple level. Infant latched to the left breast in football position with a nipple shield due to infant not latching after multiple attempts. Infant maintain latch with nipple shield. Mother denies any discomfort. Mother states her plan is to breastfeed, pump and feed the the bottle. Infant latched effectively to the right breast using football positioning and towel support with infant at nipple level. Infant was able to maintain latch without discomfort to mother. Nipple care reviewed with optimal latch and good positioning. Resources used to facilitate learning were used from the mom and baby guide. Mother voiced understanding of the education shared, calling for assistance if the does not latch or if there is discomfort with . Reported to the primary RN.
[2021-10-16] MEDS: DEXTROSE 5%/0.45% SOD CHL 1,000 ML 125 ML IV CONT (13:45)
[2021-10-16] MEDS: IBUPROFEN 600 MG TABLET PO (15:30)
[2021-10-16] MEDS: HYDROcodone/acetaminophen (*CRX) 5-325 MG TABLET 1 TAB PO (15:31)
[2021-10-16] MEDS: HYDROcodone/acetaminophen (*CRX) 10-325 MG TABLET 1 TAB PO (20:12)
[2021-10-17 04:35] VITALS: BP 100/62; PULSE 97; RESP 16; TEMP 36.6
[2021-10-17] MEDS: IBUPROFEN 600 MG TABLET PO ×3 (04:48→19:27)
[2021-10-17] MEDS: HYDROcodone/acetaminophen (*CRX) 10-325 MG TABLET 1 TAB PO ×5 (04:48→22:35)
[2021-10-17 05:44] LABS: Basophils Percent Auto 0.2 % (0.2-1.2); Eosinophils Absolute Auto 0.1 K/mm3 (0-0.3); Eosinophils Percent Auto 0.6 % (0-4.4); Hematocrit 30.4 % (37.0-47.0); Hemoglobin 9.2 g/dL (12.0-15.0); Immature Granulocyte Absolute 0.05 K/mm3 (0.00-0.031); Immature Granulocyte Percent A 0.4 % (0-0.5); Lymphocytes Absolute Auto 1.48 K/mm3 (0.9-3.2); Lymphocytes Percent Auto 11.9 % (18.3-44.2); Mean Corpuscular HGB Conc 30.3 g/dl (32-36); Mean Corpuscular Volume 89.1 fl (80-100); Mean Platelet Volume 11.3 fl (7.4-10.4); Monocytes Absolute Auto 1.1 K/mm3 (0.1-0.6); Monocytes Percent Auto 8.7 % (2.6-8.5); Neutrophils Absolute Auto 9.7 K/mm3 (1.3-6.7); Neutrophils Percent Auto 78.2 % (45.5-73.1); Platelet Count Result 214 k/mm3 (150-375); Red Blood Count 3.41 M/mm3 (4.2-5.4); Red Cell Distribution Width 14.6 % (11.5-14.5); White Blood Count 12.5 K/mm3 (4.5-10.0)
--- NOTE | 2021-10-17 07:44 | P.PNOB_ITS ---
OB - PN: Subj Subjective Date/time seen: 10/17/21 07:44 Patient comments: no complaints and pain well controlled baby status: doing well OB - PN: Obj Data Labs CBC & Chem 7: 10/17/21 04:41 Labs: Laboratory Results - last 24 hr 10/17/21 04:41 WBC 12.5 H RBC 3.41 L Hgb 9.2 L Hct 30.4 L MCV 89.1 D MCH 27.0 MCHC 30.3 L RDW 14.6 H Plt Count 214 MPV 11.3 H Immature Gran % (Auto) 0.4 Neut % (Auto) 78.2 H Lymph % (Auto) 11.9 L [place] % (Auto) 8.7 H Eos % (Auto) 0.6 Baso % (Auto) 0.2 Lymph # (Auto) 1.48 [place] # (Auto) 1.1 H Eos # (Auto) 0.1 Baso # (Auto) 0.0 Abs Immat Gran (auto) 0.05 H Absolute Neuts (auto) 9.7 H Absolute Nucleated RBC 0.0 Nucleated RBC % 0.0 OB - PN A/P Plan day: 1 Plan: routine care Time Spent With Patient Time: Total time spent is greater than 50% in coordination of care (as documented) at patient's floor/unit and/or counseling patient: Time with patient: less than 15 minutes Review of Systems Review of Systems: All systems reviewed & are unremarkable except as noted in HPI and below Exam Const: General: no acute distress Eyes: General: appearance normal, both eyes and all related structures Neck: Neck: supple and no JVD Thyroid: thyroid normal Resp: Effort & Inspection: normal respiratory effort Auscultation: clear to auscultation bilaterally Cardio: Rate: regular rate Rhythm: regular rhythm GI: Inspection: non-distended GI Palp: Yes Soft to palpation, No Tenderness to palpation present (GI) and No Guarding due to palpation present (GI) Auscultation: normal bowel sounds : General: Yes bladder normal to palpation External Female Exam: normal external appearance Speculum Exam - Vagina: normal vaginal discharge and No vaginal bleeding Speculum Exam - Cervix: nontender Bimanual exam- vagina & uterus: bladder normal to palpation and No Cervical tenderness present OB/external & speculum: No vaginal bleeding Skin: General skin exam: no rashes or lesions noted Extrem: General: normal to inspection and no edema Psych: Mental Status: mental status grossly normal Affect: normal affect
[2021-10-17 08:00] VITALS: PULSE 97; RESP 20; O2SAT 98
[2021-10-17] MEDS: SIMETHICONE 80 MG TAB.CHEW PO ×3 (08:41→15:59)
[2021-10-17] MEDS: MULTIVIT/MIN/PREN/FOL AC/IRON TABLET 1 TAB PO (08:41)
[2021-10-17] MEDS: DOCUSATE SODIUM 100 MG CAPSULE PO ×2 (08:42→15:58)
[2021-10-17] MEDS: POLYSACCHARIDE IRON COMPLEX 150 MG CAPSULE PO ×2 (08:46→15:59)
[2021-10-17 09:05] VITALS: BP 97/59; PULSE 97; RESP 20; TEMP 37.2; O2SAT 98
--- NOTE | 2021-10-17 12:38 | WPDANLDNPN2 ---
Anes-Prog Note L&D-Neuraxial Date/Time: 10/17/21 12:38 Neuraxial medications: intrathecal PF morphine Opiod-related complaints: none Patient feedback: Patient satisfied with post-operative pain management.
--- NOTE | 2021-10-17 12:38 | WPDANLDPN2 ---
Anes-Prog Note L&D Date/Time: 10/17/21 12:38 Comfortable throughout: section Neuraxial method: spinal Epidural/Spinal procedure site: clean & non-tender Neuro status: Neuro function grossly intact. Cardiovascular status: normal Respiratory status: normal Airway patency: baseline Mental status: baseline Post-Op hydration status: normal Vital Signs: Last Vital Signs Temp 37.2 C 10/17/21 09:05 Pulse 97 10/17/21 09:05 Resp 20 10/17/21 09:05 BP 97/59 L 10/17/21 09:05 Pulse Ox 98 10/17/21 09:05 Pain score (VAS): 0 I/O: Intake & Output 10/16/21 10/17/21 10/17/21 23:59 07:59 15:59 Intake Total 1000 800 Output Total 2000 1000 600 Balance -1000 -200 -600 Post-procedural complaints: none Patient feedback: Patient satisfied with anesthetic care.
[2021-10-17 12:46] VITALS: BP 96/61; PULSE 101; RESP 18; TEMP 36.6; O2SAT 98
[2021-10-17 16:15] VITALS: BP 105/61; PULSE 105; RESP 20; TEMP 37.1; O2SAT 97
[2021-10-17 20:00] VITALS: BP 114/76; PULSE 99; RESP 16; TEMP 36.6; O2SAT 98
[2021-10-18] MEDS: IBUPROFEN 600 MG TABLET PO ×3 (05:24→21:40)
[2021-10-18 08:00] VITALS: BP 114/74; PULSE 101; RESP 20; TEMP 36.3; O2SAT 97
[2021-10-18 08:30] VITALS: PULSE 101; RESP 20; O2SAT 97
[2021-10-18] MEDS: DOCUSATE SODIUM 100 MG CAPSULE PO ×2 (08:30→17:40)
[2021-10-18] MEDS: SIMETHICONE 80 MG TAB.CHEW PO (08:30)
[2021-10-18] MEDS: POLYSACCHARIDE IRON COMPLEX 150 MG CAPSULE PO ×2 (08:30→17:40)
--- NOTE | 2021-10-18 09:09 | PM.OBPNVD ---
OB - PN: Subj Subjective Date/time seen: 10/18/21 09:09 Patient comments: no complaints and pain well controlled baby status: doing well OB - PN: Obj Data Labs CBC & Chem 7: 10/17/21 04:41 OB - PN A/P Plan day: 2 Plan: routine care Time Spent With Patient Time: Total time spent is greater than 50% in coordination of care (as documented) at patient's floor/unit and/or counseling patient: Time with patient: less than 15 minutes Review of Systems Review of Systems: All systems reviewed & are unremarkable except as noted in HPI and below Exam Const: General: no acute distress Eyes: General: appearance normal, both eyes and all related structures Neck: Neck: supple and no JVD Thyroid: thyroid normal Resp: Effort & Inspection: normal respiratory effort Auscultation: clear to auscultation bilaterally Cardio: Rate: regular rate Rhythm: regular rhythm GI: Inspection: non-distended GI Palp: Yes Soft to palpation, No Tenderness to palpation present (GI) and No Guarding due to palpation present (GI) Auscultation: normal bowel sounds : General: Yes bladder normal to palpation External Female Exam: normal external appearance Speculum Exam - Vagina: normal vaginal discharge and No vaginal bleeding Speculum Exam - Cervix: nontender Bimanual exam- vagina & uterus: bladder normal to palpation and No Cervical tenderness present OB/external & speculum: No vaginal bleeding Skin: General skin exam: no rashes or lesions noted Extrem: General: normal to inspection and no edema Psych: Mental Status: mental status grossly normal Affect: normal affect
[2021-10-18] MEDS: HYDROcodone/acetaminophen (*CRX) 10-325 MG TABLET 1 TAB PO (10:36)
[2021-10-18] MEDS: HYDROcodone/acetaminophen (*CRX) 5-325 MG TABLET 1 TAB PO ×3 (13:45→21:40)
[2021-10-18 19:00] VITALS: RESP 18
[2021-10-18 19:30] VITALS: BP 111/78; PULSE 86; RESP 18; TEMP 36.9
[2021-10-19] MEDS: HYDROcodone/acetaminophen (*CRX) 5-325 MG TABLET 1 TAB PO ×2 (00:45→11:17)
[2021-10-19] MEDS: IBUPROFEN 600 MG TABLET PO ×2 (05:32→11:17)
[2021-10-19] MEDS: HYDROcodone/acetaminophen (*CRX) 10-325 MG TABLET 1 TAB PO (05:35)
--- NOTE | 2021-10-19 06:12 | PM.DS ---
DS: Admitting Diagnosis Discharge Date 10/19/2021 Admitting Diagnosis term . Previous section. Desires permanent sterilization DS: Summary Hospital Course Hospital Course: patient was admitted for repeat section tubal ligation. Her 72hour course was unremarkable. She remained and, multi General with Time Spent with Patient Time attestation: Total time spent providing and/or coordinating discharge services: Exam Const: General: no acute distress Eyes: General: appearance normal, both eyes and all related structures Neck: Neck: supple and no JVD Thyroid: thyroid normal Resp: Effort & Inspection: normal respiratory effort Auscultation: clear to auscultation bilaterally Cardio: Rate: regular rate Rhythm: regular rhythm GI: Inspection: non-distended GI Palp: Yes Soft to palpation, No Tenderness to palpation present (GI) and No Guarding due to palpation present (GI) Auscultation: normal bowel sounds : General: Yes bladder normal to palpation External Female Exam: normal external appearance Speculum Exam - Vagina: normal vaginal discharge and No vaginal bleeding Speculum Exam - Cervix: nontender Bimanual exam- vagina & uterus: bladder normal to palpation and No Cervical tenderness present OB/external & speculum: No vaginal bleeding Skin: General skin exam: no rashes or lesions noted Extrem: General: normal to inspection and no edema Psych: Mental Status: mental status grossly normal Affect: normal affect DS: Data Data Completed and Pending Completed studies during hospitalization: Pending at discharge 10/16/21 09:00 Surgical [PTH] Routine Discharge Plan Discharge Attending physician on discharge: Dante Parikh Discharging Clinician: Dante Parikh Patient Disposition: Home, Self-Care Activity: may shower, no driving and pelvic rest Diet: heart healthy Wound Care Instructions: follow printed instructions Patient Instructions: Antibiotic Form Stand Alone Forms: General Discharge Information Follow-up/Referrals: Dante Parikh MD [Physician] - Discharge Medications: New hydrocodone-acetaminophen 5-325 mg tablet 1 tablet PO Q4H PRN (Reason: pain) Qty: 30 RF: 0 Continued labetalol 200 mg Tablet 200 mg PO Q12H RF: 0 omeprazole 20 mg Capsule,Delayed Release(Dr/Ec) 20 mg PO DAILY RF: 0 labetalol 100 mg Tablet 100 mg PO 1300 RF: 0 PNV cmb#95-ferrous fumarate-FA [] 28 mg iron- 800 mcg Tablet 1 tablet PO DAILY RF: 0 albuterol 90 mcg/actuation Aerosol 90 mcg INHALATION 4-6XD PRN (Reason: Wheezing) RF: 0 Date of admission: 10/16/21 05:23 Primary Care Provider: Joe Emerson Admitting Provider: Dante Parikh Attending physician on admission: Dante Parikh Condition: Stable
--- NOTE | 2021-10-19 06:13 | PM.OBPNVD ---
OB - PN: Subj Subjective Date/time seen: 10/19/21 06:13 Patient comments: no complaints and pain well controlled baby status: doing well OB - PN: Obj Data Labs CBC & Chem 7: 10/17/21 04:41 OB - PN A/P Plan day: 3 Plan: routine care, discharge home and follow up 6 weeks (4) Time Spent With Patient Time: Total time spent is greater than 50% in coordination of care (as documented) at patient's floor/unit and/or counseling patient: Time with patient: less than 15 minutes Review of Systems Review of Systems: All systems reviewed & are unremarkable except as noted in HPI and below Exam Const: General: no acute distress Eyes: General: appearance normal, both eyes and all related structures Neck: Neck: supple and no JVD Thyroid: thyroid normal Resp: Effort & Inspection: normal respiratory effort Auscultation: clear to auscultation bilaterally Cardio: Rate: regular rate Rhythm: regular rhythm GI: Inspection: non-distended GI Palp: Yes Soft to palpation, No Tenderness to palpation present (GI) and No Guarding due to palpation present (GI) Auscultation: normal bowel sounds : General: Yes bladder normal to palpation External Female Exam: normal external appearance Speculum Exam - Vagina: normal vaginal discharge and No vaginal bleeding Speculum Exam - Cervix: nontender Bimanual exam- vagina & uterus: bladder normal to palpation and No Cervical tenderness present OB/external & speculum: No vaginal bleeding Skin: General skin exam: no rashes or lesions noted Extrem: General: normal to inspection and no edema Psych: Mental Status: mental status grossly normal Affect: normal affect
[2021-10-19 08:00] VITALS: BP 112/66; PULSE 104; RESP 20; TEMP 36.6; O2SAT 98
[2021-10-19] MEDS: SIMETHICONE 80 MG TAB.CHEW PO (11:16)
[2021-10-19] MEDS: POLYSACCHARIDE IRON COMPLEX 150 MG CAPSULE PO (11:17)
[2021-10-19] MEDS: DOCUSATE SODIUM 100 MG CAPSULE PO (11:17)
[2021-10-19] MEDS: MULTIVIT/MIN/PREN/FOL AC/IRON TABLET 1 TAB PO (11:17)
[2021-10-21 10:49] VITALS: BP 123/76; PULSE 87; RESP 20; TEMP 36.9; O2SAT 98
== END 2021-10-19 11:50 | disposition home or self-care (01) | DRG 540 ==
LOC: ANHLDR 07:30 → ANHOB2 11:01
PROVIDERS: Admitting Provider Obstetrics & Gynecology; PCP Family Medicine; Visit Provider Obstetrics & Gynecology
PROC: 10D00Z1 Extraction of Products of Conception, Low, Open Approach (ICD-10-PCS; CPT 59514; principal; 2021-10-16 07:30)
DX: O34.211 Maternal care for low transverse scar from previous cesarean delivery (principal); Z37.0 Single live birth; Z3A.40 40 weeks gestation of pregnancy; O99.824 Streptococcus B carrier state complicating childbirth; O69.81X0 Labor and delivery complicated by cord around neck, without compression, not applicable or unspecified; Z30.2 Encounter for sterilization
CPT/HCPCS: 36415; 85025; 88302; A9270; J0131; J1885; J2270; J2274; J2405; J2590; J7120

== ENCOUNTER 2022-04-09 13:58 | Outpatient (CLI) | payer OTHER, SELFPAY ==
[2022-04-09 14:53] LABS: Strep Group A RT-PCR Not Detected (Negative)
[2022-04-09 15:07] LABS: Influenza A QL RT-PCR Negative (Negative); Influenza B QL RT-PCR Negative (Negative); SARS-CoV-2 RNA PCR Negative (Negative)
[2022-04-09 15:09] LABS: RSV RNA, RT-PCR Positive (Negative)
== END 2022-04-09 13:59 | disposition home or self-care (01) ==
LOC: CHSLAB 14:00
PROVIDERS: PCP Family Medicine; Visit Provider Family Medicine
DX: J06.9 Acute upper respiratory infection, unspecified (principal); Z20.822 Contact with and (suspected) exposure to COVID-19
CPT/HCPCS: 87502; 87651; C9803; U0003; U0005

== ENCOUNTER 2022-06-05 08:20 | Emergency (ER) | payer OTHER, SELFPAY ==
[2022-06-05 08:24] VITALS: BP 146/99; PULSE 95; RESP 14; TEMP 36.6; O2SAT 94
[2022-06-05 09:03] LABS: Basophils Absolute Auto 0.1 K/mm3 (0.0-0.1); Basophils Percent Auto 0.7 % (0.2-1.2); Eosinophils Absolute Auto 0.1 K/mm3 (0-0.3); Eosinophils Percent Auto 1.2 % (0-4.4); Hematocrit 43.2 % (37.0-47.0); Immature Granulocyte Absolute 0.05 K/mm3 (0.00-0.031); Immature Granulocyte Percent A 0.4 % (0-0.5); Lymphocytes Absolute Auto 2.22 K/mm3 (0.9-3.2); Lymphocytes Percent Auto 19.9 % (18.3-44.2); Mean Corpuscular HGB Conc 34.7 g/dl (32-36); Mean Corpuscular Hemoglobin 31.9 pg (26-34); Mean Corpuscular Volume 91.9 fl (80-100); Mean Platelet Volume 9.8 fl (7.4-10.4); Monocytes Absolute Auto 0.7 K/mm3 (0.1-0.6); Monocytes Percent Auto 6.5 % (2.6-8.5); Neutrophils Percent Auto 71.3 % (45.5-73.1); Platelet Count Result 253 k/mm3 (150-375); Red Cell Distribution Width 13.8 % (11.5-14.5); White Blood Count 11.2 K/mm3 (4.5-10.0)
[2022-06-05 09:14] LABS: Alanine Aminotransferase 37 U/L (6-35); Albumin Level 4.9 g/dL (3.5-5.1); Alkaline Phosphatase 124 U/L (38-126); Anion Gap 10 mmol/L (8-16); Aspartate Amino Transferase 45 U/L (14-36); Bilirubin,Total 0.7 mg/dL (0.2-1.3); Blood Urea Nitrogen 15 mg/dL (7-17); Calcium 9.3 mg/dL (8.4-10.2); Carbon Dioxide 24 mmol/L (22-30); Chloride 103 mmol/L (98-107); Estimated CRCL calculation 113 ml/min; Estimated Glomerular Filt Rate > 60; Ethanol < 10 mg/dL (<10); Glucose 112 mg/dL (65-110); Sodium 137 mmol/L (137-145)
[2022-06-05 09:39] LABS: Influenza A QL RT-PCR Negative (Negative); Influenza B QL RT-PCR Negative (Negative); RSV RNA, RT-PCR Negative (Negative); SARS-CoV-2 RNA PCR Negative
[2022-06-05 10:10] LABS: Add Urine Microscopic? YES; Appearance Urine Clear (Clear); Bilirubin Urine 1+ (Negative); Blood Urine Negative (Negative); Color Urine Light Yellow (Yellow); Glucose Urine UA Negative (Negative); Ketones Urine Negative (Negative); Leukocyte Esterase Ur Negative LEU/UL (Negative); Nitrate Urine Negative (Negative); Protein Urine Trace mg/dL (Negative); Specific Grav Ur >= 1.030 (1.001-1.035); Urobilinogen Urine 0.2 mg/dL (<2.0); pH Urine 5.5 (5.0-9.0)
[2022-06-05 10:17] LABS: Bacteria Urine Trace /hpf; Mucus Urine Moderate /lpf; RBC Urine 0-2 /hpf (0-2); Squamous Epithelial Cell Urine Occasional /hpf (Few); WBC Urine 0-3 /hpf
--- NOTE | 2022-06-05 10:18 | ED.GENADULT ---
HPI - General Adult General Chief complaint: Psychiatric Symptoms Stated complaint: SI Time Seen by Provider: 06/05/22 08:29 History of Present Illness HPI narrative: 32-year-old 8-month female with a history of anxiety and depression as well as depression presents to our department for suicidal ideation. Patient states that her [employer] doctor started her on Zoloft 2 weeks ago for her sadness. After beginning the medication she began to have suicidal thoughts. She has no plan and would never act on these thoughts. No suicide attempts. She has an appointment this afternoon with her OB doctor but felt that she needed to come to the emergency room sooner. Related Data Home Medications Medication Instructions Recorded Confirmed labetalol 100 mg tablet 100 mg PO 1300 09/10/21 10/11/21 labetalol 200 mg tablet 200 mg PO Q12H 09/10/21 10/11/21 omeprazole 20 mg capsule,delayed 20 mg PO DAILY 09/10/21 10/11/21 release vit no.95-ferrous 1 tablet PO DAILY 09/10/21 10/11/21 fumarate 28 mg-folic acid 800 mcg tablet () albuterol 90 mcg/actuation aerosol 90 mcg inhalation 4-6XD PRN 10/11/21 10/11/21 inhaler Wheezing Allergies Allergy/AdvReac Type Severity Reaction Status Date / Time No Known Allergies Allergy Verified 09/10/21 16:26 Review of Systems Review of Systems: CONSTITUTIONAL: Denies fever, chills, or sweats. EYES: Denies visual changes, redness, or discharge. ENT: Denies rhinorrhea, congestion, sore throat, or otalgia. CARDIOVASCULAR: Denies chest pain, palpitations, or edema. RESPIRATORY: Denies cough or dyspnea. GASTROINTESTINAL: Denies abdominal pain, nausea, vomiting, or diarrhea. GENITOURINARY: Denies dysuria or hematuria. SKIN: Denies rash or itching. MUSCULOSKELETAL: Denies back pain, joint pain, or myalgia. NEUROLOGIC: Denies headache, numbness, or weakness. PSYCHIATRIC: Denies anxiety or depression. [facility] Past Medical History Medical History Asthma HTN (hypertension) Intrauterine Morbid obesity with BMI of 45.0-49.9, adult Family History Family History Other No pertinent family history Social History Social History Smoking status: Never smoker Substance use: never Substance use type: does not use Gender identity (if verbalized by the patient): Female Spiritual care concerns: No Exam Narrative: GENERAL: Well-appearing, well-nourished, and in no acute distress. HEAD: Normocephalic, atraumatic. EYES: PERRLA and EOMI. ENT: Nares clear, no rhinorrhea or epistaxis. Mucous membranes moist. NECK: Supple. CHEST: Clear to auscultation. No respiratory distress. HEART: Regular rate and rhythm. No murmur heard. Normal peripheral pulses. ABDOMEN: Soft, nontender, nondistended, normal active bowel sounds. EXTREMITIES: Normal range of motion. No edema. SKIN: Warm, dry, no rash. NEURO: No focal deficits. Alert and oriented x3. PSYCH: Normal mood and affect. Course Vital Signs Vital signs: Vital Signs Temperature 97.9 F 06/05/22 08:24 Pulse Rate 95 06/05/22 08:24 Respiratory Rate 14 06/05/22 08:24 Blood Pressure 146/99 H 06/05/22 08:24 Pulse Oximetry 94 06/05/22 08:24 Oxygen Delivery Room Air 06/05/22 08:24 Temperature 97.9 F 06/05/22 08:24 Pulse Rate 95 06/05/22 08:24 Respiratory Rate 14 06/05/22 08:24 Blood Pressure 146/99 H 06/05/22 08:24 Pulse Oximetry 94 06/05/22 08:24 Oxygen Delivery Room Air 06/05/22 08:24 Medical Decision Making MDM Narrative Medical decision making narrative: Psychiatric screening labs have been ordered and patient does not show any evidence of acute medical emergency. I discussed the case with Dr. Wyman her [employer] TE[employer] who is aware of her presence. We will also contact jaron
[2022-06-05 10:27] LABS: Amphetamine Screen Urine Negative (Negative); Barbiturate Screen Urine Negative (Negative); Benzodiazepines Screen Urine Positive (Negative); Cannabinoid Screen Urine Negative (Negative); Cocaine Screen Urine Negative (Negative); Methadone Screen Urine Negative (Negative); Opiate Screen Urine Negative (Negative); Phencyclidine Screen Urine Negative (Negative)
--- NOTE | 2022-06-05 10:57 | PC.NURSE ---
Pt medically cleared per Dr. Paez. CRISIS will be contacted at this time.
== END 2022-06-05 12:30 | disposition home or self-care (01) ==
PROVIDERS: Emergency Provider Emergency Medicine; PCP Family Medicine
DX: O99.345 Other mental disorders complicating the puerperium (principal); F53.0 Postpartum depression; Z20.822 Contact with and (suspected) exposure to COVID-19; I10 Essential (primary) hypertension; J45.909 Unspecified asthma, uncomplicated; F41.9 Anxiety disorder, unspecified; E66.01 Morbid (severe) obesity due to excess calories; Z68.42 Body mass index [BMI] 45.0-49.9, adult
CPT/HCPCS: 36415; 51701; 80053; 80307; 81001; 81025; 84443; 85025; 87637; 99284

== ENCOUNTER 2022-07-09 12:13 | Outpatient (CLI) | payer OTHER, SELFPAY ==
--- NOTE | ~2022-07-09 | XR_ITS ---
XR abdomen obstructive series DATE: 07/09/2022 12:51 INDICATION: Abdominal cramping, diarrhea, blood in stool TECHNIQUE: Supine and upright AP views of the abdomen COMPARISON: None FINDINGS: The psoas shadows are intact. No visceromegaly or significant abnormal calcification is not ed. No evidence of bowel obstruction. No intraperitoneal free air. Included skeletal structures are unremarkable. The lung bases are clear. Heart size is normal. No pleural effusion is noted. IMPRESSION: No significant abnormality Reviewed, dictated and finalized at [facility]. Reviewed, dictated and finalized at location B. [facility] IMPRESSION: No significant abnormality
[2022-07-09 12:52] LABS: Basophils Absolute Auto 0.07 K/mm3 (0.00-0.10); Basophils Percent Auto 0.7 % (0.0-1.0); Hematocrit 42.3 % (35.0-49.0); Hemoglobin 14.4 g/dL (12.0-15.0); Immature Granulocyte Absolute 0.05 K/mm3 (0.00-0.00); Immature Granulocyte Percent A 0.5 % (0.0-0.0); Lymphocytes Absolute Auto 1.99 K/mm3 (1.10-4.50); Mean Corpuscular Hemoglobin 31.6 pg (27.0-31.0); Mean Platelet Volume 10.3 fl (9.2-11.8); Monocytes Absolute Auto 0.58 K/mm3 (0.10-0.90); Monocytes Percent Auto 5.5 % (2.0-11.0); Neutrophils Absolute Auto 7.7 K/mm3 (1.7-7.2); Neutrophils Percent Auto 73.3 % (50.0-70.0); Platelet Count Result 262 K/mm3 (150-420); Red Blood Count 4.55 M/mm3 (4.20-5.40); Red Cell Distribution Width 13.2 % (11.6-14.4); White Blood Count 10.5 K/mm3 (4.8-10.8)
[2022-07-09 13:07] LABS: Prothrombin Time 10.6 Seconds (9.50-12.10)
[2022-07-09 13:20] LABS: Alanine Aminotransferase 49 U/L (14-59); Albumin Level 3.9 g/dL (3.4-5.0); Alkaline Phosphatase 122 U/L (46-116); Amylase 30 U/L (25-115); Anion Gap 10 mmol/L (8-16); Aspartate Amino Transferase 38 U/L (15-37); Bilirubin,Total 0.5 mg/dL (0.00-1.00); Blood Urea Nitrogen 17 mg/dL (7-18); Calcium 9.2 mg/dL (8.5-10.1); Carbon Dioxide 25 mmol/L (21-32); Chloride 100 mmol/L (98-108); Estimated Glomerular Filt Rate > 60; Glucose 94 mg/dL (70-99); Lipase 20 U/L (16-77); Osmolality Calculated 281 mOsm/kg (285-295); Potassium 4.1 mmol/L (3.5-5.1); Sodium 135 mmol/L (136-145); Total Protein 7.5 g/dL (6.4-8.2)
[2022-07-13 01:09] LABS: ANCA Screen Negative (Negative); Myeloperoxidase Ab <1.0 AI (<1.0); Proteinase-3 Ab <1.0 AI (<1.0); S cerevisiae Ab (IgA) 30.2 U (<=20.0); S cerevisiae Ab (IgG) 35.6 U (<=20.0)
[2022-07-15 08:58] LABS: Gliadin AB, IgG <1.0 U/mL (<15.0); TTG IGA AB <1.0 U/mL (<15.0)
== END 2022-07-09 12:14 | disposition home or self-care (01) ==
LOC: CHSLAB 12:15
PROVIDERS: PCP Family Medicine; Visit Provider Family Medicine
DX: R10.9 Unspecified abdominal pain (principal); R19.7 Diarrhea, unspecified; K92.1 Melena
CPT/HCPCS: 36415; 74019; 80053; 82150; 83516; 83690; 85025; 85610; 86036; 86255; 86671

== ENCOUNTER 2022-07-10 11:33 | Outpatient (CLI) | payer OTHER, SELFPAY ==
[2022-07-10 12:14] LABS: Add Urine Microscopic? YES; Appearance Urine Slightly Cloudy (Clear); Bilirubin Urine Negative (Negative); Blood Urine 3+ (Negative); Color Urine Light Yellow (Yellow); Glucose Urine UA Negative (Negative); Ketones Urine Negative (Negative); Leukocyte Esterase Ur 3+ (Negative); Nitrate Urine Negative (Negative); Protein Urine Trace (Negative); Specific Grav Ur >= 1.030 (1.010-1.020); Urobilinogen Urine 0.2 mg/dL (0.2-1.0)
[2022-07-10 12:24] LABS: Bacteria Urine 1+ /hpf; RBC Urine 21-50 /hpf (0-2); Squamous Epithelial Cell Urine Moderate /hpf (Few); WBC Urine >75 /hpf (0-3)
[2022-07-10 12:27] LABS: Occult Blood Negative (Negative)
[2022-07-10 12:27] LABS: Occult Blood Negative (Negative)
== END 2022-07-10 11:34 | disposition home or self-care (01) ==
LOC: CHSLAB 11:36
PROVIDERS: PCP Family Medicine; Visit Provider Family Medicine
DX: R10.9 Unspecified abdominal pain (principal); R19.7 Diarrhea, unspecified; K92.1 Melena
CPT/HCPCS: 81001; 82272; 87045; 87177; 87209; 87269; 87427

== ENCOUNTER 2022-07-24 12:56 | Outpatient (CLI) | payer OTHER, SELFPAY ==
[2022-07-24 13:05] LABS: Add Urine Microscopic? YES; Appearance Urine Clear (Clear); Bilirubin Urine Negative (Negative); Blood Urine 3+ (Negative); Color Urine Yellow (Yellow); Glucose Urine UA Negative (Negative); Ketones Urine Negative (Negative); Leukocyte Esterase Ur Trace (Negative); Nitrate Urine Negative (Negative); Protein Urine Trace (Negative); Specific Grav Ur >= 1.030 (1.010-1.020); Urobilinogen Urine 0.2 mg/dL (0.2-1.0)
[2022-07-24 13:11] LABS: Bacteria Urine Trace /hpf; RBC Urine >75 /hpf (0-2); Squamous Epithelial Cell Urine Rare /hpf (Few); WBC Urine 0-3 /hpf (0-3)
== END 2022-07-24 12:57 | disposition home or self-care (01) ==
LOC: CHSLAB 12:58
PROVIDERS: PCP Family Medicine; Visit Provider Family Medicine
DX: R19.7 Diarrhea, unspecified (principal); R82.81 Pyuria
CPT/HCPCS: 81001; 84376; 87086; 87088

== ENCOUNTER 2022-09-04 15:42 | Outpatient (CLI) | payer OTHER, SELFPAY ==
--- NOTE | ~2022-09-04 | XR_ITS ---
EXAMINATION: XR abdomen obstructive series DATE: 09/04/2022 16:20 INDICATION: Abdominal pain TECHNIQUE: Supine and upright views of the abdomen. FINDINGS: 07/09/2022 The visualized lung parenchyma is normal.. There is a nonobstructive bowel gas pattern. Gas and stool are seen throughout the colon to the level of the rectum. There is no free air. There is mild dextr oscoliosis of the lumbar spine. There are pelvic phleboliths. IMPRESSION: 1. No acute abdominal abnormality. Reviewed, dictated and finalized at location A.
[2022-09-04 16:04] LABS: Basophils Absolute Auto 0.06 K/mm3 (0.00-0.10); Eosinophils Absolute Auto 0.04 K/mm3 (0.02-0.50); Eosinophils Percent Auto 0.7 % (1.0-6.0); Hematocrit 46.3 % (35.0-49.0); Hemoglobin 15.5 g/dL (12.0-15.0); Immature Granulocyte Absolute 0.01 K/mm3 (0.00-0.00); Immature Granulocyte Percent A 0.2 % (0.0-0.0); Lymphocytes Absolute Auto 1.82 K/mm3 (1.10-4.50); Lymphocytes Percent Auto 31.2 % (18.0-42.0); Mean Corpuscular HGB Conc 33.5 g/dL (32.0-36.0); Mean Corpuscular Hemoglobin 32.3 pg (27.0-31.0); Mean Corpuscular Volume 96.5 fL (78.0-102.0); Mean Platelet Volume 10.1 fl (9.2-11.8); Neutrophils Absolute Auto 3.2 K/mm3 (1.7-7.2); Neutrophils Percent Auto 54.9 % (50.0-70.0); Platelet Count Result 246 K/mm3 (150-420); Red Cell Distribution Width 13.1 % (11.6-14.4); White Blood Count 5.8 K/mm3 (4.8-10.8)
[2022-09-04 16:40] LABS: Alanine Aminotransferase 183 U/L (14-59); Alkaline Phosphatase 146 U/L (46-116); Amylase 26 U/L (25-115); Anion Gap 13 mmol/L (8-16); Aspartate Amino Transferase 389 U/L (15-37); Bilirubin,Total 1.3 mg/dL (0.00-1.00); Blood Urea Nitrogen 16 mg/dL (7-18); Calcium 9.4 mg/dL (8.5-10.1); Carbon Dioxide 25 mmol/L (21-32); Chloride 100 mmol/L (98-108); Estimated Glomerular Filt Rate > 60; Glucose 112 mg/dL (70-99); Lipase 22 U/L (16-77); Osmolality Calculated 288 mOsm/kg (285-295); Sodium 138 mmol/L (136-145); Total Protein 8.4 g/dL (6.4-8.2)
[2022-09-04 17:12] LABS: Bilirubin Direct 0.5 mg/dL (0-0.2)
[2022-09-12 03:53] LABS: Hepatitis A Antibody IgM Nonreactive; Hepatitis B Core Antibody Nonreactive (Nonreactive); Hepatitis B Surface Antigen Nonreactive (Nonreactive); Hepatitis C Signal to Cutoff 0.05 ratio (<1.00); Hepatitis C Virus Antibody Nonreactive (Nonreactive)
== END 2022-09-04 15:43 | disposition home or self-care (01) ==
LOC: CHSLAB 15:44
PROVIDERS: PCP Family Medicine; Visit Provider Family Medicine
DX: R10.9 Unspecified abdominal pain (principal); K80.20 Calculus of gallbladder without cholecystitis without obstruction; K92.1 Melena; R82.81 Pyuria
CPT/HCPCS: 36415; 74019; 80053; 80074; 82150; 82248; 83690; 85025

== ENCOUNTER 2022-09-08 09:06 | Outpatient (CLI) | payer OTHER, SELFPAY ==
--- NOTE | ~2022-09-08 | US_ITS ---
EXAMINATION: US abdomen complete DATE: 09/08/2022 09:33 INDICATION: Abdominal pain TECHNIQUE: Multiple grayscale and Doppler ultrasound images of the abdomen were obtained. COMPARISON: 11/18/2016 FINDINGS: Spleen is normal measuring 9.4 cm in maximal length. There is normal renal contour and echogenicity b ilaterally. The right kidney measures 11.5 x 4.4 x 5.4 cm and the left 11.2 x 5.3 x 5.9 cm. There are no focal renal lesions identified. There is no hydronephrosis. The pancreatic head and body are norm al in appearance. The pancreatic tail is not visualized. Liver has normal contour, with a smooth s urface. There is increased parenchymal echogenicity and coarsened echotexture with focal sparing arcelia g the gallbladder fossa consistent with diffuse hepatic steatosis. No liver lesion identified. No in trahepatic biliary duct dilation suspected. Portal venous flow was seen in the hepatopetal, normal di rection and has normal Doppler waveform. There are few echogenic and shadowing mobile gallstones with in the otherwise normal-appearing gallbladder. Common bile duct measures 4 mm diameter which is darío l. Sonographic Beal sign was reported as negative by the health care coordinator. The visualized proximal to mi d aorta and inferior vena cava are normal. IMPRESSION: 1. Cholelithiasis without biliary ductal dilation or findings to suggest acute cholecystitis. 2. Diffuse hepatic steatosis with focal sparing along the gallbladder fossa. Reviewed, dictated and finalized at location A.
== END 2022-09-08 09:07 | disposition home or self-care (01) ==
LOC: CHSIMG 09:10
PROVIDERS: PCP Family Medicine; Visit Provider Family Medicine
DX: R10.9 Unspecified abdominal pain (principal); K80.20 Calculus of gallbladder without cholecystitis without obstruction; K76.0 Fatty (change of) liver, not elsewhere classified
CPT/HCPCS: 76700

== ENCOUNTER 2022-09-09 11:11 | Outpatient (CLI) | payer OTHER, SELFPAY ==
[2022-09-09 12:11] LABS: Alanine Aminotransferase 99 U/L (14-59); Albumin Level 3.6 g/dL (3.4-5.0); Alkaline Phosphatase 150 U/L (46-116); Aspartate Amino Transferase 91 U/L (15-37); Bilirubin Direct 0.1 mg/dL (0-0.2); Bilirubin,Total 0.4 mg/dL (0.00-1.00); GGT 332 U/L (5-55); Total Protein 7.8 g/dL (6.4-8.2)
== END 2022-09-09 11:12 | disposition home or self-care (01) ==
LOC: CHSLAB 11:14
PROVIDERS: PCP Family Medicine; Visit Provider Family Medicine
DX: K80.20 Calculus of gallbladder without cholecystitis without obstruction (principal); K92.1 Melena; R82.81 Pyuria; R10.9 Unspecified abdominal pain
CPT/HCPCS: 36415; 80076; 82977

== ENCOUNTER 2022-09-09 13:47 | Emergency (ER) | payer OTHER, SELFPAY ==
[2022-09-09 13:47] VITALS: BP 142/107; PULSE 100; RESP 18; TEMP 36.6; O2SAT 98
--- NOTE | 2022-09-09 15:05 | PC.NURSE ---
PT HAS HAD MULTIPLE TRIPS TO , REPORTS LIQUID STOOLS. PT IS AWAITING ERP EXAMINATION AT THIS TIME. WILL CONTINUE TO MONITOR.
--- NOTE | 2022-09-09 15:11 | ED.GENADULT ---
HPI - General Adult General Chief complaint: Abdominal Pain Stated complaint: abdominal pain Source: patient Mode of arrival: ambulatory Limitations: no limitations History of Present Illness HPI narrative: Patient is a 32-year-old white female complains of abdominal pain for over 2 months. And a gallstones her ultrasound done last week. Had labs done today. Is scheduled for upper GI on September 17. Has been having liquid bowel movements every 30-60 minutes. Feels dizzy and lightheaded abdominal pain does not get worse or better with anything special she developed like passing out sometimes when strain and have a bowel movement. Denies nausea or vomiting she has she is being managed by Dr. Grajeda. On 09/04 she had a normal white count and CBC. ?Chemistries were unremarkable except for AST of 389 ALT of 181 alk phos of 146 and a total protein of 8.4.? Today GGTP was 332, AST was 91, ALT was 99, alk-phos 150. ?She has hepatitis panel pending. Patient thinks she might have some hemorrhoids she has had little blood on the tissue paper but not on the stool or mixed in with the stool. Is also some bumps back there the rectum. It is tender. Related Data Home Medications Medication Instructions Recorded Confirmed omeprazole 20 mg capsule,delayed 20 mg PO DAILY 09/10/21 09/05/22 release albuterol sulfate 90 mcg/actuation 1 puff inhalation QID PRN Dyspnea 09/05/22 09/05/22 aerosol inhaler alprazolam 0.25 mg tablet 0.25 mg PO DAILY PRN Anxiety 09/05/22 09/05/22 buspirone 5 mg tablet 5 mg PO DAILY 09/05/22 09/05/22 escitalopram oxalate 10 mg tablet 10 mg PO DAILY 09/05/22 09/05/22 fluoxetine 40 mg capsule 40 mg PO DAILY 09/05/22 09/05/22 labetalol 100 mg tablet 100 mg PO TID 09/05/22 09/05/22 Allergies Allergy/AdvReac Type Severity Reaction Status Date / Time No Known Allergies Allergy Verified 09/09/22 13:51 Review of Systems Constitutional: Constitutional: Reports no additional constitutional complaints Eyes: Eyes: Reports no additional eye complaints ENT: Reports system reviewed and no additional complaints, except as documented Cardiovascular: Cardiovascular: Reports no additional cardiovascular complaints Respiratory: Respiratory: Reports no additional respiratory complaints Gastrointestinal: Gastrointestinal: Reports as per HPI Genitourinary: Genitourinary: Reports no additional female genitourinary complaints Musculoskeletal: Musculoskeletal: Reports no additional musculoskeletal complaints Integumentary/Breasts: Skin/Breast: Reports system reviewed and no additional complaints, except as docu Neurologic: Reports system reviewed and no additional complaints, except as documented Endocrine: Endocrine: Reports no additional endocrine complaints [facility] Past Medical History Medical History (Reviewed 08/06/22 @ 13:25 by Charis Brewer [facility]) Asthma HTN (hypertension) Intrauterine Morbid obesity with BMI of 45.0-49.9, adult Family History Family History Other No pertinent family history Social History Social History Smoking status: Never smoker Alcohol intake: current Alcohol use details: wine 3-4 days/week Substance use: never Substance use type: does not use Living arrangements: with family Gender identity (if verbalized by the patient): Female Spiritual care concerns: No Exam Narrative: White female with mild apparent distress.? Head normocephalic, atraumatic.? Eyes conjunctiva pink sclera nonicteric.? Extraocular movements are intact.? Ears externally normal.? Oropharynx is clear with moist mucous membranes without exudates.? Neck is supple nontender no lymphadenopathy. ?Back is nontender.? Lungs are clear.? Heart is regular rate and rhythm without murmurs gallops or rubs.? Chest wall is nontender.? Abdomen is soft and nontender no hepatospl
[2022-09-09 15:55] VITALS: BP 138/80; PULSE 88; RESP 18; O2SAT 98
== END 2022-09-09 15:55 | disposition home or self-care (01) ==
PROVIDERS: Emergency Provider Emergency Medicine; PCP Family Medicine
DX: K64.9 Unspecified hemorrhoids (principal); R10.9 Unspecified abdominal pain; I10 Essential (primary) hypertension
CPT/HCPCS: 36415; 80076; 82977; 99281

== ENCOUNTER 2022-09-10 09:11 | Emergency (ER) | payer OTHER, SELFPAY ==
--- NOTE | ~2022-09-10 | CT_ITS ---
CT of the Abdomen and Pelvis: Indication: Abdominal pain Technique: 2.5 mm axial scans were obtained through the abdomen and pelvis following intravenous adm inistration of 100 cc of Omnipaque 350. Dose reduction technique was used on this scan by utilizing a utomated exposure control and iterative reconstruction technique. The dose-length product (DLP) was 1 539.39 mGy-cm. COMPARISON: 11/18/2016 Findings: Scans through the lung bases are unremarkable. The liver, spleen, pancreas, gallbladder, adrenals and kidneys are within normal limits. No evidence of aortic aneurysm. No lymphadenopathy. No bowel obstruction or bowel wall thickening. There is no evidence to suggest acute appendicitis. Th ere is a low ventral fat-containing hernia. Images through the pelvis were performed. Urinary bladder unremarkable. No adnexal mass seen. No asci guille. Impression: Low ventral fat-containing hernia. Reviewed, dictated and finalized at [facility]. Impression: Low ventral fat-containing hernia.
[2022-09-10 09:13] VITALS: BP 130/95; PULSE 99; RESP 16; TEMP 36.7; O2SAT 99
--- NOTE | 2022-09-10 09:52 | PC.NURSE ---
pt unable to provide urine sample at this time.
[2022-09-10 09:59] LABS: Basophils Percent Auto 0.4 % (0.2-1.2); Eosinophils Absolute Auto 0.1 K/mm3 (0-0.3); Eosinophils Percent Auto 1.5 % (0-4.4); Hematocrit 43.1 % (37.0-47.0); Hemoglobin 14.3 g/dL (12.0-15.0); Immature Granulocyte Absolute 0.02 K/mm3 (0.00-0.031); Immature Granulocyte Percent A 0.4 % (0-0.5); Lymphocytes Absolute Auto 1.54 K/mm3 (0.9-3.2); Lymphocytes Percent Auto 28.8 % (18.3-44.2); Mean Corpuscular HGB Conc 33.2 g/dl (32-36); Mean Corpuscular Hemoglobin 32.2 pg (26-34); Mean Corpuscular Volume 97.1 fl (80-100); Mean Platelet Volume 10.3 fl (7.4-10.4); Monocytes Absolute Auto 0.7 K/mm3 (0.1-0.6); Monocytes Percent Auto 12.1 % (2.6-8.5); Neutrophils Percent Auto 56.8 % (45.5-73.1); Platelet Count Result 187 k/mm3 (150-375); Red Blood Count 4.44 M/mm3 (4.2-5.4); Red Cell Distribution Width 13.6 % (11.5-14.5); White Blood Count 5.4 K/mm3 (4.5-10.0)
--- NOTE | 2022-09-10 10:07 | ED.ABDPAIN ---
HPI - Abdominal Pain General Chief Complaint: Abdominal Pain Stated Complaint: Rectal Pain Time Seen by Provider: 09/10/22 09:35 Source: patient Mode of arrival: ambulatory Limitations: no limitations History of Present Illness HPI narrative: This is a 32 year old female that presents to the ER for diarrhea ongoing over the last several months. Has been evaluated by GI for this and has a colonoscopy scheduled in a week. Started on cholestyramine. Reports painful hemorrhoids with intermittent bleeding. She has been using Preparation H with little relief. Reports intermittent crampy abdominal pain. Denies fever, vomiting, or dysuria. Related Data Home Medications Medication Instructions Recorded Confirmed omeprazole 20 mg capsule,delayed 20 mg PO DAILY 09/10/21 09/05/22 release albuterol sulfate 90 mcg/actuation 1 puff inhalation QID PRN Dyspnea 09/05/22 09/05/22 aerosol inhaler alprazolam 0.25 mg tablet 0.25 mg PO DAILY PRN Anxiety 09/05/22 09/05/22 buspirone 5 mg tablet 5 mg PO DAILY 09/05/22 09/05/22 escitalopram oxalate 10 mg tablet 10 mg PO DAILY 09/05/22 09/05/22 fluoxetine 40 mg capsule 40 mg PO DAILY 09/05/22 09/05/22 labetalol 100 mg tablet 100 mg PO TID 09/05/22 09/05/22 Allergies Allergy/AdvReac Type Severity Reaction Status Date / Time No Known Allergies Allergy Verified 09/09/22 13:51 Review of Systems Review of Systems: CONSTITUTIONAL: Denies fever GASTROINTESTINAL: Reports abdominal pain, and diarrhea. GENITOURINARY: Denies dysuria All systems reviewed & are unremarkable except as noted in HPI and below [facility] Past Medical History Medical History (Updated 09/10/22 @ 11:46 by Yessi Westfall PA-C) Asthma HTN (hypertension) Morbid obesity with BMI of 45.0-49.9, adult Family History Family History Other No pertinent family history Social History Social History Smoking status: Never smoker Alcohol intake: current Alcohol use details: wine 3-4 days/week Substance use: never Substance use type: does not use Living arrangements: with family Gender identity (if verbalized by the patient): Female Spiritual care concerns: No Exam Narrative: GENERAL: Well-appearing, well-nourished, and in no acute distress. HEAD: Normocephalic, atraumatic. EYES: EOMI. CHEST: Clear to auscultation. No respiratory distress. No wheezes rales or rhonchi HEART: Regular rate and rhythm. No murmur heard. Normal peripheral pulses. ABDOMEN: Soft, nontender, nondistended, normal active bowel sounds. EXTREMITIES: Normal range of motion. No edema. SKIN: Warm, dry, no rash. NEURO: No focal deficits. Alert and oriented x3. PSYCH: Normal mood and affect RECTAL: Non-thrombosed external hemorrhoid present, no active bleeding. Hemoccult negative. Mild-moderate irritation/redness of the skin around the rectum Course Course Emergency Course: Patient was updated on work-up and agrees with plan of care Vital Signs Vital signs: Vital Signs Temperature 98.1 F 09/10/22 09:13 Pulse Rate 99 09/10/22 09:13 Respiratory Rate 16 09/10/22 09:13 Blood Pressure 130/95 H 09/10/22 09:13 Pulse Oximetry 99 09/10/22 09:13 Oxygen Delivery Room Air 09/10/22 09:13 Temperature 98.1 F 09/10/22 09:13 Pulse Rate 99 09/10/22 09:13 Respiratory Rate 16 09/10/22 09:13 Blood Pressure 130/95 H 09/10/22 09:13 Pulse Oximetry 99 09/10/22 09:13 Oxygen Delivery Room Air 09/10/22 09:13 MDM - Abdominal Pain MDM Narrative Medical decision making narrative: Patient presents to the emergency department for rectal pain and diarrhea. Has been following with GI for these complaints. She does have a colonoscopy scheduled for about a week from now. She is afebrile and nontoxic-appearing. Her vitals are stable. CBC without leukocytosis. Metabolic panel with mild transamini
[2022-09-10] MEDS: SODIUM CHLORIDE 0.9% IV 1,000 ML 999 ML IV CONT (10:12)
[2022-09-10 10:16] LABS: Alanine Aminotransferase 78 U/L (6-35); Albumin Level 4.4 g/dL (3.5-5.1); Alkaline Phosphatase 149 U/L (38-126); Anion Gap 12 mmol/L (8-16); Aspartate Amino Transferase 109 U/L (14-36); Bilirubin,Total 0.7 mg/dL (0.2-1.3); Blood Urea Nitrogen 13 mg/dL (7-17); Calcium 8.8 mg/dL (8.4-10.2); Carbon Dioxide 16 mmol/L (22-30); Chloride 108 mmol/L (98-107); Estimated CRCL calculation 131 ml/min; Estimated Glomerular Filt Rate > 60; Glucose 105 mg/dL (65-110); Lipase 70 U/L (23-300); Potassium 4.3 mmol/L (3.4-5.0); Sodium 136 mmol/L (137-145)
--- NOTE | 2022-09-10 11:13 | PC.NURSE ---
pt still unable to urinate and states to just straight cath her. tech in room for straight cath.
[2022-09-10 12:04] LABS: Appearance Urine Clear (Clear); Bacteria Urine None Seen /hpf; Bilirubin Urine Negative (Negative); Blood Urine Negative (Negative); Color Urine Yellow (Yellow); Glucose Urine UA Negative (Negative); Ketones Urine Negative (Negative); Leukocyte Esterase Ur Negative LEU/UL (Negative); Need Manual Microscopic Reviewed; Nitrate Urine Negative (Negative); Non Pathogenic Casts 0-2; Protein Urine Trace mg/dL (Negative); RBC Urine 0-2 /hpf (0-2); Squamous Epithelial Cell Urine None seen /hpf (Few); Urobilinogen Urine 0.2 mg/dL (<2.0); WBC Urine 0-5 /hpf; pH Urine 5.5 (5.0-9.0)
[2022-09-10 12:06] LABS: Add Urine Microscopic? YES; Specific Grav Ur 1.049 (1.001-1.035)
== END 2022-09-10 12:18 | disposition home or self-care (01) ==
PROVIDERS: Emergency Provider Physician Assistant; PCP Family Medicine
DX: K64.9 Unspecified hemorrhoids (principal); L30.9 Dermatitis, unspecified; K62.89 Other specified diseases of anus and rectum; I10 Essential (primary) hypertension; J45.909 Unspecified asthma, uncomplicated; E66.9 Obesity, unspecified; Z68.43 Body mass index [BMI] 50.0-59.9, adult
CPT/HCPCS: 36415; 74177; 80053; 81001; 81025; 83690; 85025; 96361; 96365; 99284; J0131; J7030; Q9967

== ENCOUNTER 2022-09-11 09:27 | Outpatient (CLI) | payer OTHER, SELFPAY ==
[2022-09-11 10:41] LABS: CRP 0.7 mg/dL (<1.0)
[2022-09-11 10:45] LABS: Iron 73 ug/dL (37-170)
[2022-09-11 10:55] LABS: Percent Iron Saturation 16 % (20-50)
[2022-09-11 11:06] LABS: Erythrocyte Sedimentation Rate 18 mm/hr (0-20)
[2022-09-14 12:00] LABS: Mitochondrial (M2) Ab (IgG) <=20.0 U (<=20.0)
[2022-09-16 19:30] LABS: Ceruloplasmin 31 mg/dL (18-53)
== END 2022-09-11 09:28 | disposition home or self-care (01) ==
PROVIDERS: PCP Family Medicine; Visit Provider Internal Medicine Gastroenterology
DX: R74.8 Abnormal levels of other serum enzymes (principal)
CPT/HCPCS: 36415; 82104; 82390; 82728; 83520; 83540; 83550; 85652; 86038; 86140

== ENCOUNTER 2022-09-17 00:43 | Day surgery (SDC) | payer OTHER, SELFPAY ==
[2022-09-05 12:33] VITALS: BMI 51.2
--- NOTE | 2022-09-17 09:02 | SUR.PREOP ---
Patient has history of tubal ligation. Last period was 08/25/22. Dr. Panchal aware. No test needed per Dr. Panchal. Patient state she took her anxiety med while she was here. Dr. Panchal aware.
[2022-09-17 09:08] VITALS: BP 140/97; PULSE 90; RESP 21; TEMP 36.4; O2SAT 99
[2022-09-17] MEDS: LACTATED RINGERS 1,000 ML 150 ML IV CONT (09:14)
--- NOTE | 2022-09-17 09:15 | WPDHPUPDATE1 ---
History and Physical Update Update Date/Time: 09/17/22 09:15 History and Physical has been reviewed, including an updated exam of the patient. There are NO changes in the patient's condition. Risks, benefits, and alternatives have been discussed and questions answered. Patient agrees to proceed with procedure.
[2022-09-17 09:33] VITALS: BP 95/56; PULSE 95; RESP 21; O2SAT 95
--- NOTE | 2022-09-17 09:37 | WPDANESEPPF ---
Anes - Initial Pre Proc Eval Procedure: Operation Date: 09/17/22 10:15 Proposed Procedures p Colonoscopy - Cameron Cardoso MD s [facility] Hemorrhoid Treatment - Cameron Cardoso MD Date/Time: 09/17/22 09:37 Surgeon: Cameron Cardoso MD Pre Op Diagnosis: diarrhea, hemorrhoids Patient Data Age: 32 Gender: F Height: 1.52 m Weight: 120.2 kg Last Vital Signs Temp 97.6 F 09/17/22 09:08 Pulse 90 09/17/22 09:08 Resp 21 H 09/17/22 09:08 BP 140/97 H 09/17/22 09:08 Pulse Ox 99 09/17/22 09:08 O2 Del Method Room Air 09/17/22 09:08 Allergies Allergy/AdvReac Type Severity Reaction Status Date / Time No Known Allergies Allergy Verified 09/17/22 09:05 Home Medications Medication Instructions Recorded Confirmed Type omeprazole 20 mg capsule,delayed 20 mg PO DAILY 09/10/21 09/17/22 History release albuterol sulfate 90 mcg/actuation 1 puff inhalation QID PRN Dyspnea 09/05/22 09/17/22 History aerosol inhaler alprazolam 0.25 mg tablet 0.25 mg PO DAILY PRN Anxiety 09/05/22 09/17/22 History buspirone 5 mg tablet 5 mg PO DAILY 09/05/22 09/17/22 History escitalopram oxalate 10 mg tablet 10 mg PO DAILY 09/05/22 09/17/22 History fluoxetine 40 mg capsule 40 mg PO DAILY 09/05/22 09/17/22 History labetalol 100 mg tablet 100 mg PO TID 09/05/22 09/17/22 History cholestyramine (with sugar) 4 gram 4 g PO BID #348.6 grams 09/09/22 09/17/22 Rx oral powder hydrocortisone 1 % topical cream 1 applic topical BID 2 weeks #28.4 09/10/22 09/17/22 Rx grams hydrocortisone acetate 25 mg 25 mg RECTAL BID #12 ea 09/11/22 09/17/22 Rx rectal suppository Patient hx anesthesia problems: none Family hx anesthesia problems: none Results Review: All pre-operative results and documents have been reviewed as part of the pre-operative evaluation. [facility] Past Medical History Medical History (Updated 09/11/22 @ 09:24 by Cameron Cardoso MD) Alcohol use Asthma Chronic diarrhea Elevated liver enzymes Fatty liver HTN (hypertension) Morbid obesity with BMI of 45.0-49.9, adult Perianal pain Family History Family History Other No pertinent family history Social History Social History Smoking status: Never smoker Alcohol intake: current Alcohol use details: wine 3-4 days/week Substance use: never Substance use type: does not use Living arrangements: with family Gender identity (if verbalized by the patient): Female Spiritual care concerns: No Anes - Eval Final PreProcedure Day of Procedure 09/17/22 09:37 Patient weight: super morbidly obese Heart: regular rate and rhythm Lungs: clear to auscultation Airway: Mallampati scale class II Neurological: alert and oriented Last oral intake: >/= 8 hours ASA classification: III Emergent: no Anesthetic plan: proceed Anesthesia type and monitoring: general GIVS and standard monitoring Results Review: All pre-operative results and documents have been reviewed as part of the pre-operative evaluation. Informed Consent: The patient's anesthetic plan and its attendant risks and benefits were discussed with the patient/family/POA. Questions were solicited and answers provided to the satisfaction of the patient/family/POA.
--- NOTE | 2022-09-17 09:39 | W.PM.PROC2 ---
Procedure Note - Detailed Date of Procedure 09/17/22 Pre-op Diagnosis hemorrhoids Post-op Diagnosis Same Procedure Performed IRC of internal hemorrhoids Surgeon Cameron Cardoso MD Anesthesia MAC (also had colonoscopy) Description of Procedure found skin tags, no fissure, no lesions. I introduced anoscopy and saw small internal hemorrhoids, no bleeding. Then advanced IRC probe and internal hemorrhoids treated for 1.5 seconds x5
[2022-09-17 09:43] VITALS: BP 106/69; PULSE 88; RESP 23; O2SAT 95
[2022-09-17 09:53] VITALS: BP 117/82; PULSE 89; RESP 19; O2SAT 97
== END 2022-09-17 10:02 | disposition home or self-care (01) ==
PROVIDERS: PCP Family Medicine; Visit Provider Internal Medicine Gastroenterology
PROC: 0DJD8ZZ Inspection of Lower Intestinal Tract, Via Natural or Artificial Opening Endoscopic (ICD-10-PCS; CPT 45378; principal; 2022-09-17 10:15)
PROC: (CPT 46930; 2022-09-17 10:15)
DX: R19.7 Diarrhea, unspecified (principal); K64.8 Other hemorrhoids; K64.4 Residual hemorrhoidal skin tags; I10 Essential (primary) hypertension; K76.0 Fatty (change of) liver, not elsewhere classified; J45.909 Unspecified asthma, uncomplicated; E66.01 Morbid (severe) obesity due to excess calories; Z68.43 Body mass index [BMI] 50.0-59.9, adult; Z79.51 Long term (current) use of inhaled steroids
CPT/HCPCS: 46930; 45380; 88305; J2704; J7120

== ENCOUNTER 2022-09-23 15:18 | Observation (INO) | payer OTHER, SELFPAY ==
[2022-09-23] VITALS (21 sets, daily range): BP systolic 110–145; BP diastolic 68–97; PULSE 72–112; RESP 15–23; TEMP 36.3–36.4; O2SAT 93–100; BMI 49.8
--- NOTE | ~2022-09-23 | CT_ITS ---
EXAMINATION: CT abdomen pelvis w con DATE: 09/24/2022 09:52 INDICATION: Gastrointestinal hemorrhage. TECHNIQUE: Computed tomography (CT) of the abdomen and pelvis was performed with 100 mL Omnipaque 350 intravenous contrast. Automated exposure control and iterative reconstruction technique were employe d. The dose-length product was 1547.42 mGy-cm. COMPARISON: CT abdomen and pelvis 09/10/2022 FINDINGS: The visualized portions of the lung bases demonstrate mild atelectasis. There are centrilob ular nodules in the lower lobes, consistent with mild pneumonia. No pleural effusion. The heart size is normal. No pericardial effusion. There is diffuse hepatic steatosis. The gallbladder, spleen, panc reas, adrenal glands, and right kidney are normal. There is a 9 mm cyst in left kidney. There are no dilated loops of bowel. The appendix is normal. There is physiologic fluid in the pelvis. There is an infraumbilical ventral hernia containing fat. There are no pathologically enlarged lymph nodes. The bones are unremarkable. IMPRESSION: 1. Mild pneumonia in the lower lobes. 2. Diffuse hepatic steatosis. 3. Infraumbilical ventral hernia containing fat. Reviewed, dictated and finalized at location A.
[2022-09-23 15:41] LABS: Basophils Absolute Auto 0.1 K/mm3 (0.0-0.1); Basophils Percent Auto 0.7 % (0.2-1.2); Eosinophils Absolute Auto 0.1 K/mm3 (0-0.3); Eosinophils Percent Auto 0.9 % (0-4.4); Hematocrit 38.9 % (37.0-47.0); Hemoglobin 13.2 g/dL (12.0-15.0); Immature Granulocyte Absolute 0.04 K/mm3 (0.00-0.031); Immature Granulocyte Percent A 0.4 % (0-0.5); Lymphocytes Absolute Auto 2.37 K/mm3 (0.9-3.2); Lymphocytes Percent Auto 22.3 % (18.3-44.2); Mean Corpuscular HGB Conc 33.9 g/dl (32-36); Mean Corpuscular Hemoglobin 32.3 pg (26-34); Mean Corpuscular Volume 95.1 fl (80-100); Mean Platelet Volume 10.2 fl (7.4-10.4); Monocytes Absolute Auto 0.8 K/mm3 (0.1-0.6); Monocytes Percent Auto 7.8 % (2.6-8.5); Neutrophils Absolute Auto 7.2 K/mm3 (1.3-6.7); Neutrophils Percent Auto 67.9 % (45.5-73.1); Platelet Count Result 297 k/mm3 (150-375); Red Blood Count 4.09 M/mm3 (4.2-5.4); Red Cell Distribution Width 13.4 % (11.5-14.5); White Blood Count 10.6 K/mm3 (4.5-10.0)
[2022-09-23 15:50] LABS: Prothrombin Time 12.8 Seconds (11.1-14.7)
[2022-09-23 15:51] LABS: Partial Thromboplastin Time 23.2 SECONDS (22.3-36.8)
--- NOTE | 2022-09-23 15:53 | ED.GIBLEED ---
HPI - GI Bleed General Chief complaint: GI Bleed Stated complaint: Blood in stool Time Seen by Provider: 09/23/22 15:52 History of Present Illness HPI Narrative: Pt had colonoscopy and hemorrhoidectomy 6 days ago and was doing well prior to today when she started passing large amounts of blood and clots per rectum. Pt says she feels like she is going to pass out and feels very lightheaded. Pt denies CP or abdominal pain. Related Data Home Medications Medication Instructions Recorded Confirmed albuterol sulfate 90 mcg/actuation 1 puff inhalation QID PRN Dyspnea 09/05/22 09/17/22 aerosol inhaler alprazolam 0.25 mg tablet 0.25 mg PO DAILY PRN Anxiety 09/05/22 09/23/22 buspirone 5 mg tablet 5 mg PO DAILY 09/05/22 09/23/22 fluoxetine 40 mg capsule 40 mg PO DAILY 09/05/22 09/23/22 labetalol 100 mg tablet 200 mg PO TID 09/05/22 09/23/22 cholestyramine (with sugar) 4 gram 4 g PO BIDWM 09/23/22 09/23/22 oral powder Allergies Allergy/AdvReac Type Severity Reaction Status Date / Time No Known Allergies Allergy Verified 09/23/22 17:33 Review of Systems Review of Systems: All systems reviewed & are unremarkable except as noted in HPI and below PMFSH Past Medical History Medical History (Updated 09/23/22 @ 18:13 by Cassandra Zee NP) Abnormal colonoscopy Alcohol use Asthma Chronic diarrhea Depression with anxiety Elevated liver enzymes Fatty liver HTN (hypertension) Morbid obesity with BMI of 45.0-49.9, adult Perianal pain Surgical History Surgical History (Updated 09/23/22 @ 18:13 by Cassandra Zee NP) H/O section times 2 H/O hemorrhoidectomy H/O tubal ligation History of colonoscopy Family History Family History Other No pertinent family history Social History Social History (Updated 09/23/22 @ 18:19 by Cassandra Zee NP) Social History: significant other and 2 children [employer] . Smoking status: Never smoker Alcohol intake: current Alcohol use details: wine 3-4 days/week Substance use: never Substance use type: does not use Living arrangements: with family Gender identity (if verbalized by the patient): Female Spiritual care concerns: No Exam Const: General: healthy appearing Nutritional Appearance: well nourished Orientation/consciousness: patient oriented x3 Limitations: no limitations HENMT: Mouth: Yes Normal oral and palatal mucosa present Eyes: Conjunctivae: conjunctivae normal Resp: Effort & Inspection: normal respiratory effort Auscultation: clear to auscultation bilaterally Cardio: Rate: regular rate Rhythm: regular rhythm GI: GI Palp: Yes Soft to palpation Auscultation: normal bowel sounds Skin: General skin exam: normal color Neuro: General: patient oriented x3, moves all extremities, no meningeal signs, no focal motor deficits and CN's II-XI intact bilaterally Speech: normal speech Extrem: General: normal to inspection and no clubbing, cyanosis or edema Psych: Mental Status: mental status grossly normal Affect: normal affect Attitude: cooperative Course Vital Signs Vital signs: Vital Signs Temperature 97.6 F 09/23/22 15:20 Pulse Rate 112 H 09/23/22 15:20 Respiratory Rate 16 09/23/22 15:20 Blood Pressure 122/78 09/23/22 15:20 Pulse Oximetry 100 09/23/22 15:20 Oxygen Delivery Room Air 09/23/22 15:20 Temperature 97.4 F L 09/23/22 21:00 Pulse Rate 90 09/23/22 21:00 Respiratory Rate 16 09/23/22 21:00 Blood Pressure 117/76 09/23/22 21:00 Pulse Oximetry 98 09/23/22 21:00 Oxygen Delivery Room Air 09/23/22 15:20 MDM - GI Bleed MDM Narrative Medical decision making narrative: Pt had hemmorhoidectomy and colonoscopy 6 days ago and started passing BRBPR this afternoon. Pt has no abdominal pain so not likely perforation. Likely clot came off form hemorrhoid procedure. Will check orthostatics and cbc and c
[2022-09-23 15:54] LABS: Alanine Aminotransferase 53 U/L (6-35); Albumin Level 4.4 g/dL (3.5-5.1); Alkaline Phosphatase 109 U/L (38-126); Anion Gap 9 mmol/L (8-16); Aspartate Amino Transferase 72 U/L (14-36); Bilirubin,Total 0.7 mg/dL (0.2-1.3); Blood Urea Nitrogen 11 mg/dL (7-17); Calcium 8.9 mg/dL (8.4-10.2); Carbon Dioxide 22 mmol/L (22-30); Chloride 106 mmol/L (98-107); Estimated CRCL calculation 88 ml/min; Estimated Glomerular Filt Rate > 60; Glucose 122 mg/dL (65-110); Potassium 3.8 mmol/L (3.4-5.0); Sodium 137 mmol/L (137-145)
[2022-09-23] MEDS: SODIUM CHLORIDE 0.9% IV 1,000 ML 999 ML IV CONT (16:54)
--- NOTE | 2022-09-23 18:10 | PM.IMHP ---
H&P: HPI History of Present Illness Date/Time: 09/23/22 18:10 Chief Complaint: GI bleed Narrative: This is a 32-year-old female patient who had been dealing with diarrhea for 5 months. She was negative for celiac. But had a positive marker for IBd. The patient had been dealing with hemorrhoid and was seen by Dr. Petit. She had IR see of internal hemorrhoids. On 09/17/2022 as per operative note on that day ?ound skin tags, no fissure, no lesions. I introduced anoscopy and saw small internal hemorrhoids, no bleeding. Then advanced IRC probe and internal hemorrhoids treated for 1.5 seconds x5 ?. The patient came to the emergency room today because she started passing large amount of clots per her rectum. I personally saw several large clots come from patient's rectum. The patient stated she felt like she was very weak and was going to pass out. Her H&H is 12.0 in 36.2. Initially her H&H is 13.2 and 38.9. The patient was started on IV fluids. Her blood pressure is soft at 115/57. The patient is being admitted to observation status on 09/23/2022 Review of Systems Review of Systems: All systems reviewed & are unremarkable except as noted in HPI and below Constitutional: Constitutional: Reports as per HPI and Reports no additional constitutional complaints Eyes: Eyes: Reports as per HPI and Reports no additional eye complaints ENT: Reports system reviewed and no additional complaints, except as documented and Reports Normal hearing present Cardiovascular: Cardiovascular: Reports no additional cardiovascular complaints Respiratory: Respiratory: Reports no additional respiratory complaints and Reports no additional respiratory complaints Gastrointestinal: Gastrointestinal: Reports as per HPI and Reports no additional gastrointestinal complaints Musculoskeletal: Musculoskeletal: Reports no additional musculoskeletal complaints Integumentary/Breasts: Skin/Breast: Reports system reviewed and no additional complaints, except as docu and Reports as per HPI Neurologic: Reports system reviewed and no additional complaints, except as documented, Reports as per HPI and Reports Normal hearing present Psychiatric: Psychiatric: Reports no additional psychiatric complaints and Reports as per HPI Endocrine: Endocrine: Reports no additional endocrine complaints Hematologic/Lymphatic: Hematologic/Lymphatic: Reports no additional hematologic/lymphatic complaints Allergic/Immunologic: Allergic/Immunologic: Reports no additional allergic/immunologic complaints PMFSH Past Medical History Medical History Abnormal colonoscopy Alcohol use Asthma Chronic diarrhea Depression with anxiety Elevated liver enzymes Fatty liver HTN (hypertension) Morbid obesity with BMI of 45.0-49.9, adult Perianal pain Surgical History Surgical History H/O section times 2 H/O hemorrhoidectomy H/O tubal ligation History of colonoscopy Family History Family History Other No pertinent family history Social History Social History (Updated 09/24/22 @ 00:12 by Cassandra Zee NP) Social History: The patient lives with her significant other and has 2 children. She works for [employer] . Code status full code Smoking status: Never smoker Alcohol intake: current Drinks per week: 8 Alcohol use details: wine 3-4 days/week Substance use: never Substance use type: does not use Lack of Transportation: No Lack of Food: Never True Current Housing: I Have Housing Concerned About Future Housing: No Difficulty Paying Gas/Electric Bills: YES Difficulty Paying for Meds: No Currently Unemployed: No Education: High School Diploma/GED Difficulty w/ Childcare or Family Care: No Living arrangements: with family Gender identity (if verbalized by the
[2022-09-23 19:05] LABS: Hematocrit 36.2 % (37.0-47.0)
--- NOTE | 2022-09-23 19:10 | PC.NURSE ---
REPORT TO GUSTAVO MCDONALD. CARE TRANSFERRED
--- NOTE | 2022-09-23 20:49 | ADMGEN ---
This patient, Anabel Hoff, was admitted to IMU Room 200-2049. Patient/family oriented to hospital policies and general routines including ID bracelet, bed and alarms, visiting hours, pain management, procedures, bathroom and other care routines, personal items, smoking policy, room service/diet, and visiting hours. Information on how to activate the Rapid Response Team has been discussed. Patient/Family are encouraged to report perceived risks to care and to ask questions if they do not understand what they are told or what they should do.
[2022-09-24] VITALS (13 sets, daily range): BP systolic 115–141; BP diastolic 57–89; PULSE 64–93; RESP 16–20; TEMP 36.2–36.7; O2SAT 96–100
[2022-09-24 00:18] LABS: Hematocrit 32.7 % (37.0-47.0); Hemoglobin 10.8 g/dL (12.0-15.0)
[2022-09-24] MEDS: SODIUM CHLORIDE 0.9% IV 1,000 ML 100 ML IV CONT ×3 (01:32→20:42)
[2022-09-24 04:51] LABS: Hematocrit 32.4 % (37.0-47.0); Hemoglobin 10.6 g/dL (12.0-15.0)
[2022-09-24 05:00] LABS: Alanine Aminotransferase 42 U/L (6-35); Albumin Level 3.4 g/dL (3.5-5.1); Alkaline Phosphatase 84 U/L (38-126); Anion Gap 8 mmol/L (8-16); Aspartate Amino Transferase 43 U/L (14-36); Bilirubin,Total 0.7 mg/dL (0.2-1.3); Blood Urea Nitrogen 12 mg/dL (7-17); Calcium 8.2 mg/dL (8.4-10.2); Carbon Dioxide 23 mmol/L (22-30); Chloride 106 mmol/L (98-107); Estimated CRCL calculation 130 ml/min; Estimated Glomerular Filt Rate > 60; Glucose 83 mg/dL (65-110); Magnesium 1.9 mg/dL (1.6-2.3); Potassium 3.2 mmol/L (3.4-5.0); Sodium 137 mmol/L (137-145)
--- NOTE | 2022-09-24 08:48 | PM.IMPN ---
Progress Note: A&P Assessment and Plan (1) GI bleed: Code(s): K92.2 - Gastrointestinal hemorrhage, unspecified Status: Acute Assessment and Plan: NPO, IV fluids, GI consult, monitor hemoglobin (2) Depression with anxiety: Code(s): F41.8 - Other specified anxiety disorders Status: Acute Assessment and Plan: Continue with BuSpar and Xanax Continue with Prozac (3) Asthma: Code(s): J45.909 - Unspecified asthma, uncomplicated Status: Acute Assessment and Plan: Continue with albuterol inhaler (4) HTN (hypertension): Code(s): I10 - Essential (primary) hypertension Status: Acute Assessment and Plan: Hypotensive, hold antihypertensives for now, blood pressure reviewed 09/24 (5) Hypokalemia: Code(s): E87.6 - Hypokalemia Status: Acute Assessment and Plan: Replete and recheck, likely from GI losses Plan DVT prophylaxis with SCDs GI prophylaxis with PPI Code status full code Subjective Date/time seen: 09/24/22 08:48 Interval history: 32-year-old female with history of diarrhea and hemorrhoids treated about 6 days ago during anoscopy presenting with bright red blood per rectum and acute blood loss anemia. No overnight events noted. No chest pain or shortness of breath. No nausea, vomiting. No fevers or chills. She is still having blood in her stool. Review of Systems Review of Systems: 12 point review of systems was assessed and was negative except as noted in the HPI Exam Narrative: General: No acute distress, alert and oriented per baseline HEENT: Atraumatic, normocephalic, mucous membranes moist CV: Regular rate and rhythm, S1, S2 Lungs: Clear to auscultation bilaterally, no rales or crackles noted, no wheezes, good air entry Abdomen: Soft, nontender, nondistended Extremities: Normal to inspection Skin: No rashes noted, no lesions or wounds seen Psych: Euthymic, normal affect Objective Data Vital Signs Vital Signs: Vital Signs - 24 hr 09/23/22 15:20 09/23/22 15:40 09/23/22 15:46 Temperature 97.6 F Pulse Rate 112 H 105 H 104 H Respiratory Rate 16 16 16 Blood Pressure 122/78 122/82 110/80 Pulse Oximetry 100 100 98 Oxygen Delivery Room Air 09/23/22 16:03 09/23/22 16:16 09/23/22 16:32 Temperature Pulse Rate 90 93 96 Respiratory Rate 21 H 15 23 H Blood Pressure 113/86 118/80 110/70 Pulse Oximetry 97 99 93 Oxygen Delivery 09/23/22 16:54 09/23/22 17:01 09/23/22 19:00 Temperature Pulse Rate 93 95 88 Respiratory Rate 15 19 20 Blood Pressure 114/68 145/80 H 130/97 H Pulse Oximetry 98 97 96 Oxygen Delivery 09/23/22 19:15 09/23/22 19:16 09/23/22 19:30 Temperature Pulse Rate 82 88 77 Respiratory Rate 20 20 20 Blood Pressure 128/81 Pulse Oximetry 98 99 96 Oxygen Delivery 09/23/22 19:32 09/23/22 19:45 09/23/22 19:46 Temperature Pulse Rate 84 74 82 Respiratory Rate 18 19 19 Blood Pressure 132/87 Pulse Oximetry 96 98 98 Oxygen Delivery 09/23/22 19:47 09/23/22 20:00 09/23/22 20:15 Temperature Pulse Rate 82 72 87 Respiratory Rate 17 15 Blood Pressure Pulse Oximetry 98 97 97 Oxygen Delivery 09/23/22 20:30 09/23/22 21:00 09/23/22 21:00 Temperature 97.4 F L Pulse Rate 89 90 90 Respiratory Rate 16 16 Blood Pressure 117/76 Pulse Oximetry 97 98 98 Oxygen Delivery Room Air 09/23/22 22:00 09/24/22 00:00 09/24/22 00:00 Temperature 98.1 F Pulse Rate 76 69 74 Respiratory Rate 18 Blood Pressure 115/57 L Pulse Oximetry 100 Oxygen Delivery 09/24/22 00:00 09/24/22 02:00 09/24/22 04:00 Temperature Pulse Rate 74 73 75 Respiratory Rate 18 Blood Pressure Pulse Oximetry 100 Oxygen Delivery Room Air 09/24/22 04:00 09/24/22 04:00 09/24/22 06:00 Temperature 97.8 F Pulse Rate 73 66 64 Respiratory Rate 18 20 Blood Pressure 122/65 Pulse Oximetry 100 99
[2022-09-24] MEDS: FLUoxetine HCL 20 MG CAPSULE 40 MG PO (09:58)
[2022-09-24] MEDS: busPIRone HCL 5 MG TABLET PO ×2 (09:58→16:26)
[2022-09-24 11:21] LABS: Hematocrit 31.4 % (37.0-47.0); Hemoglobin 10.4 g/dL (12.0-15.0)
[2022-09-24] MEDS: POTASSIUM CHLORIDE INJ 40 MEQ in SODIUM CHLORIDE 0.9% IV 500 ML 130 MEQ IVPB (13:00)
[2022-09-24] MEDS: PANTOPRAZOLE 40 MG TABLET PO (14:29)
--- NOTE | 2022-09-24 14:54 | PCCCNOTE ---
On 09/24/22, the student, [Florencia Ortega], provided care and completed [facility] documentation on this patient. I have reviewed the student's documentation and agree with the findings.
--- NOTE | 2022-09-24 14:56 | WPDGICN ---
Assessment and Plan Assessment and plan (1) Painless rectal bleeding: Code(s): K62.5 - Hemorrhage of anus and rectum Status: Acute Assessment and Plan: probably after hemorrhoid treatment when I used infrared coagulation hb now is stable at 10.5, expect that will slow down she can go home and follow-up in office (2) Acute blood loss anemia: Code(s): D62 - Acute posthemorrhagic anemia Status: Acute Assessment and Plan: h/h stable today (3) Hypokalemia: Code(s): E87.6 - Hypokalemia Status: Acute Assessment and Plan: treated (4) Fatty liver: Code(s): K76.0 - Fatty (change of) liver, not elsewhere classified Status: Acute Assessment and Plan: she can follow-up in office transaminases at baseline (5) Hemorrhoid: Qualifiers: Hemorrhoid type: unspecified Qualified Code(s): K64.9 - Unspecified hemorrhoids Code(s): K64.9 - Unspecified hemorrhoids Status: Inactive (6) Chronic diarrhea: Code(s): K52.9 - Noninfective gastroenteritis and colitis, unspecified Status: Acute GI Consult Note Consult date/time: 09/24/22 14:56 Reason for consult: rectal bleeding HPI: Anabel Hoff is a 32 year old female who just had outpatient colonoscopy?09/17 because chronic diarrhea, did not have colitis or polyps removed, I took random colon bx- normal and also had small internal hemorrhoids treated with infrared coagulation. She came to the hospital after yesterday noted large amount of bright red blood in stool, today slowing down and clearing out. No abdominal pain. hb from 12 to 10.5 but since stable. She had positive marker for IBD, had ultrasound that showed?Cholelithiasis without biliary ductal dilation or findings to suggest acute cholecystitis. Diffuse hepatic steatosis. Also had in the past elevated transaminases probably from fatty liver. Review of Systems Constitutional: Constitutional: Denies chills Eyes: Eyes: Denies blurry vision ENT: Reports Normal hearing present Cardiovascular: Cardiovascular: Denies chest pain Respiratory: Respiratory: Denies chest congestion Gastrointestinal: Gastrointestinal: Reports hematochezia Genitourinary: Genitourinary: Denies hematuria Musculoskeletal: Musculoskeletal: Denies arthralgias Integumentary/Breasts: Skin/Breast: Denies rash Neurologic: Denies Abnormal speech present [facility] Past Medical History Medical History (Updated 09/24/22 @ 15:01 by Cameron Cardoso MD) Abnormal colonoscopy Acute blood loss anemia Alcohol use Asthma Chronic diarrhea Depression with anxiety Elevated liver enzymes Fatty liver HTN (hypertension) Morbid obesity with BMI of 45.0-49.9, adult Perianal pain Surgical History Surgical History H/O section times 2 H/O hemorrhoidectomy H/O tubal ligation History of colonoscopy Family History Family History Other No pertinent family history Social History Social History (Updated 09/24/22 @ 00:12 by Cassandra Zee NP) Social History: The patient lives with her significant other and has 2 children. She works for [employer] . Code status full code Smoking status: Never smoker Alcohol intake: current Drinks per week: 8 Alcohol use details: wine 3-4 days/week Substance use: never Substance use type: does not use Lack of Transportation: No Lack of Food: Never True Current Housing: I Have Housing Concerned About Future Housing: No Difficulty Paying Gas/Electric Bills: YES Difficulty Paying for Meds: No Currently Unemployed: No Education: High School Diploma/GED Difficulty w/ Childcare or Family Care: No Living arrangements: with family Gender identity (if verbalized by the patient): Female Spiritual care concerns: No Meds Home Medications and Al
[2022-09-24] MEDS: CHOLESTYRAMINE (W/ SUGAR) 4 GM POWD.PACK PO (16:26)
[2022-09-24] MEDS: ALPRAZolam (*CRX) 0.25 MG TABLET PO (20:43)
[2022-09-25] VITALS: PULSE 78; RESP 20; O2SAT 97
[2022-09-25 02:00] VITALS: PULSE 95
[2022-09-25 04:00] VITALS: BP 135/76; PULSE 64; PULSE 77; PULSE 95; RESP 20; TEMP 36.6; O2SAT 97; O2SAT 98
[2022-09-25 04:50] LABS: Basophils Absolute Auto 0.1 K/mm3 (0.0-0.1); Basophils Percent Auto 1.1 % (0.2-1.2); Eosinophils Absolute Auto 0.2 K/mm3 (0-0.3); Eosinophils Percent Auto 2.6 % (0-4.4); Hematocrit 31.9 % (37.0-47.0); Hemoglobin 10.5 g/dL (12.0-15.0); Immature Granulocyte Absolute 0.03 K/mm3 (0.00-0.031); Immature Granulocyte Percent A 0.5 % (0-0.5); Lymphocytes Absolute Auto 1.96 K/mm3 (0.9-3.2); Lymphocytes Percent Auto 31.3 % (18.3-44.2); Mean Corpuscular HGB Conc 32.9 g/dl (32-36); Mean Corpuscular Hemoglobin 32.3 pg (26-34); Mean Corpuscular Volume 98.2 fl (80-100); Mean Platelet Volume 10.1 fl (7.4-10.4); Monocytes Absolute Auto 0.6 K/mm3 (0.1-0.6); Monocytes Percent Auto 10.1 % (2.6-8.5); Neutrophils Absolute Auto 3.4 K/mm3 (1.3-6.7); Neutrophils Percent Auto 54.4 % (45.5-73.1); Platelet Count Result 223 k/mm3 (150-375); Red Blood Count 3.25 M/mm3 (4.2-5.4); Red Cell Distribution Width 13.4 % (11.5-14.5); White Blood Count 6.3 K/mm3 (4.5-10.0)
[2022-09-25 05:20] LABS: Alanine Aminotransferase 41 U/L (6-35); Albumin Level 3.7 g/dL (3.5-5.1); Alkaline Phosphatase 94 U/L (38-126); Anion Gap 5 mmol/L (8-16); Aspartate Amino Transferase 47 U/L (14-36); Bilirubin,Total 0.4 mg/dL (0.2-1.3); Blood Urea Nitrogen 8 mg/dL (7-17); Calcium 8.4 mg/dL (8.4-10.2); Carbon Dioxide 26 mmol/L (22-30); Chloride 105 mmol/L (98-107); Estimated CRCL calculation 100 ml/min; Estimated Glomerular Filt Rate > 60; Glucose 98 mg/dL (65-110); Potassium 3.8 mmol/L (3.4-5.0); Sodium 136 mmol/L (137-145)
[2022-09-25 05:53] LABS: Alveolar/Arterial O2 Gradient 33.4 mmHg; Base Excess ABG -0.9 mEq/l (+/-2.0); Carboxyhemoglobin 0.3 % THb (0-2.0); Fractional Inspired Oxygen 21 %; HCO3 ABG 22.6 mEq/l (22.0-26.0); Methemoglobin ABG 0.3 %THb (0-1.5); Oxygen Content ABG 15.8 %vol (16.0-22.0); Oxygen Saturation ABG 95.9 % (95.0-100.0); PCO2 ABG 33.5 mmHg (35.0-45.0); PO2 ABG 76.2 mmHg (80.0-100.0); PO2 FiO2 Ratio Arterial Blood 3.63 %; Reduced Hemoglobin 5.4 %THb (0-5.0); Total Hemoglobin 11.9 g/dL (12.0-18.0); pH ABG 7.446 (7.350-7.450)
[2022-09-25 06:00] VITALS: PULSE 70
[2022-09-25 06:01] LABS: Device ROOM AIR; Modified Allen's Test Pass; Site Drawn RIGHT RADIAL
[2022-09-25 08:00] VITALS: BP 129/80; PULSE 74; PULSE 81; RESP 15; TEMP 36.3; O2SAT 98
--- NOTE | 2022-09-25 08:07 | PM.DS ---
DS: Admitting Diagnosis Discharge Date 09/25/22 Admitting Diagnosis rectal bleeding DS: Discharge Diagnosis Discharge Diagnosis (1) GI bleed: Code(s): K92.2 - Gastrointestinal hemorrhage, unspecified Status: Acute Assessment and Plan: NPO, IV fluids, GI consult, monitor hemoglobin (2) Depression with anxiety: Code(s): F41.8 - Other specified anxiety disorders Status: Acute Assessment and Plan: Continue with BuSpar and Xanax Continue with Prozac (3) Asthma: Code(s): J45.909 - Unspecified asthma, uncomplicated Status: Acute Assessment and Plan: Continue with albuterol inhaler (4) HTN (hypertension): Code(s): I10 - Essential (primary) hypertension Status: Acute Assessment and Plan: Hypotensive, hold antihypertensives for now, blood pressure reviewed 09/24 (5) Hypokalemia: Code(s): E87.6 - Hypokalemia Status: Acute Assessment and Plan: Replete and recheck, likely from GI losses Plan DVT prophylaxis with SCDs GI prophylaxis with PPI Code status full code DS: Summary Hospital Course Hospital Course: 32-year-old female with history of diarrhea and hemorrhoids treated about 6 days ago during anoscopy presenting with bright red blood per rectum and acute blood loss anemia. GI was consulted. They thought her symptoms were directly related to the infrared coagulation procedure for her hemorrhoids that was performed. Hgb remained stable at 10.5, expect that will slow down, she can go home and follow-up in office with GI. See above and med rec for details. Time Spent with Patient Time attestation: Total time spent providing and/or coordinating discharge services: Exam Narrative: General: No acute distress, alert and oriented per baseline HEENT: Atraumatic, normocephalic, mucous membranes moist CV: Regular rate and rhythm, S1, S2 Lungs: Clear to auscultation bilaterally, no rales or crackles noted, no wheezes, good air entry Abdomen: Soft, nontender, nondistended Extremities: Normal to inspection Skin: No rashes noted, no lesions or wounds seen Psych: Euthymic, normal affect DS: Data Data Completed and Pending Labs on day of discharge: Labs from last 24 hours 09/25/22 09/25/22 09/25/22 05:37 04:33 04:33 WBC 6.3 RBC 3.25 L Hgb 10.5 L Hct 31.9 L MCV 98.2 MCH 32.3 MCHC 32.9 RDW 13.4 Plt Count 223 MPV 10.1 Immature Gran % (Auto) 0.5 Neut % (Auto) 54.4 Lymph % (Auto) 31.3 [place] % (Auto) 10.1 H Eos % (Auto) 2.6 Baso % (Auto) 1.1 Lymph # (Auto) 1.96 [place] # (Auto) 0.6 Eos # (Auto) 0.2 Baso # (Auto) 0.1 Abs Immat Gran (auto) 0.03 Absolute Neuts (auto) 3.4 Absolute Nucleated RBC 0.0 Nucleated RBC % 0.0 Puncture Site Right radial ABG pH 7.446 ABG pCO2 33.5 L ABG pO2 76.2 L ABG PO2/FiO2 Ratio 3.63 ABG HCO3 22.6 ABG O2 Saturation 95.9 ABG O2 Content 15.8 L ABG Base Excess -0.9 A-a Gradient 33.4 Oxyhemoglobin 94.0 Carboxyhemoglobin 0.3 Methemoglobin 0.3 Reduced Hemoglobin 5.4 H Total Hemoglobin 11.9 L O2 Delivery Device Room air O2 Liters/Min Not Reportable FiO2 21 Sodium 136 L Potassium 3.8 Chloride 105 Carbon Dioxide 26 Anion Gap 5 L BUN 8 Creatinine 0.80 Estim Creat Clear Calc 100 Estimated GFR > 60 Glucose 98 Calcium 8.4 Total Bilirubin 0.4 AST 47 H ALT 41 H Alkaline Phosphatase 94 Total Protein 7.0 Albumin 3.7 09/24/22 11:10 WBC RBC Hgb 10.4 L Hct 31.4 L MCV MCH MCHC RDW Plt Count MPV Immature Gran % (Auto) Neut % (Auto) Lymph % (Auto) [place] % (Auto) Eos % (Auto) Baso % (Auto) Lymph # (Auto) [place] # (Auto) Eos # (Auto) Baso # (Auto) Abs Immat Gran (auto) Absolute Neuts (auto) Absolute Nucleated RBC Nucleated RBC % Puncture Site A
[2022-09-25 10:00] VITALS: PULSE 87
--- NOTE | 2022-09-25 14:30 | PCCCNOTE ---
On 09/25/22, the student, [Florencia Ortega], provided care and completed [facility] documentation on this patient. I have reviewed the student's documentation and agree with the findings.
== END 2022-09-25 11:15 | disposition home or self-care (01) ==
LOC: ANHED 16:56 → ANHIMU 20:00
PROVIDERS: Nurse Practitioner; Admitting Provider Student in an Organized Health Care Education/Training Program; Emergency Provider Emergency Medicine; PCP Family Medicine; Visit Provider Student in an Organized Health Care Education/Training Program
DX: K92.2 Gastrointestinal hemorrhage, unspecified (principal); D62 Acute posthemorrhagic anemia; F41.8 Other specified anxiety disorders; J45.909 Unspecified asthma, uncomplicated; I10 Essential (primary) hypertension; E87.6 Hypokalemia; J18.9 Pneumonia, unspecified organism; K52.9 Noninfective gastroenteritis and colitis, unspecified; K64.9 Unspecified hemorrhoids; K43.9 Ventral hernia without obstruction or gangrene; K76.0 Fatty (change of) liver, not elsewhere classified; Z48.815 Encounter for surgical aftercare following surgery on the digestive system; R42 Dizziness and giddiness; E66.01 Morbid (severe) obesity due to excess calories; Z68.42 Body mass index [BMI] 45.0-49.9, adult; F10.90 Alcohol use, unspecified, uncomplicated; Z79.51 Long term (current) use of inhaled steroids; Z79.52 Long term (current) use of systemic steroids; Z79.899 Other long term (current) drug therapy
CPT/HCPCS: 36415; 36600; 74177; 80053; 82375; 82805; 83050; 83735; 85014; 85018; 85025; 85610; 85730; 86850; 86900; 86901; 96361; 96374; 96375; 99285; A9270; G0378; G0379; J0131; J7030; J7040; Q9967

== ENCOUNTER 2022-10-23 16:47 | Outpatient (CLI) | payer OTHER, SELFPAY ==
[2022-10-23 17:41] LABS: Influenza A QL RT-PCR Negative (Negative); Influenza B QL RT-PCR Negative (Negative); SARS-CoV-2 RNA PCR Negative (Negative); Strep Group A RT-PCR Not Detected (Negative)
== END 2022-10-23 16:48 | disposition home or self-care (01) ==
PROVIDERS: PCP Family Medicine; Visit Provider Family Medicine
DX: J06.9 Acute upper respiratory infection, unspecified (principal)
CPT/HCPCS: 87636; 87651

== ENCOUNTER 2022-11-26 10:57 | Emergency (ER) | payer OTHER, SELFPAY ==
[2022-11-26] VITALS (12 sets, daily range): BP systolic 100–123; BP diastolic 60–94; PULSE 90–102; RESP 16–72; TEMP 36.8; O2SAT 96–100
--- NOTE | ~2022-11-26 | CT_ITS ---
EXAMINATION: CT abdomen pelvis w con DATE: 11/26/2022 13:07 INDICATION: Left lower quadrant abdominal pain. TECHNIQUE: Computed tomography (CT) of the abdomen and pelvis was performed with 100 mL Omnipaque 350 intravenous contrast. Automated exposure control and iterative reconstruction technique were employe d. The dose-length product was 1664.59 mGy-cm. COMPARISON: CT abdomen and pelvis 09/24/2022 FINDINGS: The visualized portions of the lung bases demonstrate mild atelectasis. No pleural effusion . The heart size is normal. No pericardial effusion. The liver, gallbladder, spleen, pancreas, adrena l glands, and right kidney are normal. Again seen is a small area of scarring in left kidney. There a re no dilated loops of bowel. The appendix is normal. There are no pathologically enlarged lymph node s. There is no free intraperitoneal fluid. There is an infraumbilical rectus sheath hernia containing fat. There are no pathologically enlarged lymph nodes. There is no free intraperitoneal fluid. There is a hemangioma in T8 vertebral body. IMPRESSION: 1. Infraumbilical rectus sheath hernia containing fat. Reviewed, dictated and finalized at location A.
[2022-11-26 11:18] LABS: Basophils Percent Auto 0.4 % (0.2-1.2); Eosinophils Absolute Auto 0.1 K/mm3 (0-0.3); Eosinophils Percent Auto 0.5 % (0-4.4); Hematocrit 38.1 % (37.0-47.0); Hemoglobin 12.1 g/dL (12.0-15.0); Immature Granulocyte Absolute 0.06 K/mm3 (0.00-0.031); Immature Granulocyte Percent A 0.5 % (0-0.5); Lymphocytes Absolute Auto 1.95 K/mm3 (0.9-3.2); Lymphocytes Percent Auto 17.6 % (18.3-44.2); Mean Corpuscular HGB Conc 31.8 g/dl (32-36); Mean Corpuscular Hemoglobin 27.8 pg (26-34); Mean Corpuscular Volume 87.6 fl (80-100); Mean Platelet Volume 10.2 fl (7.4-10.4); Monocytes Absolute Auto 1.1 K/mm3 (0.1-0.6); Monocytes Percent Auto 9.5 % (2.6-8.5); Neutrophils Absolute Auto 7.9 K/mm3 (1.3-6.7); Neutrophils Percent Auto 71.5 % (45.5-73.1); Platelet Count Result 273 k/mm3 (150-375); Red Blood Count 4.35 M/mm3 (4.2-5.4); Red Cell Distribution Width 15.9 % (11.5-14.5); White Blood Count 11.1 K/mm3 (4.5-10.0)
--- NOTE | 2022-11-26 11:41 | ED.ABDPAIN ---
HPI - Abdominal Pain General Chief Complaint: Abdominal Pain Stated Complaint: lower abd pain Time Seen by Provider: 11/26/22 11:19 History of Present Illness HPI narrative: 32-year-old female history of IBS, hemorrhoids and chronic diarrhea presents to the emergency room for evaluation of lower abdominal pain. Patient states that she has been experiencing diarrhea for 5 days. Associated with scant amount of bright red blood on her toilet paper. Patient does admit to significant history of hemorrhoids, and hemorrhoidectomy. Patient states that she regularly sees Dr. Petit. Reports has been taking Colesytramine twice daily for her diarrhea. Denies fevers. Related Data Home Medications Medication Instructions Recorded Confirmed albuterol sulfate 90 mcg/actuation 1 puff inhalation QID PRN Dyspnea 09/05/22 09/23/22 aerosol inhaler alprazolam 0.25 mg tablet 0.25 mg PO DAILY PRN Anxiety 09/05/22 09/23/22 buspirone 5 mg tablet 5 mg PO BID 09/05/22 09/23/22 fluoxetine 40 mg capsule 40 mg PO DAILY 09/05/22 09/23/22 omeprazole 20 mg capsule,delayed 20 mg PO DAILY 09/23/22 09/23/22 release Allergies Allergy/AdvReac Type Severity Reaction Status Date / Time No Known Allergies Allergy Verified 11/26/22 11:14 Review of Systems Review of Systems: CONSTITUTIONAL: Denies fever, chills, or sweats. EYES: Denies visual changes, redness, or discharge. ENT: Denies rhinorrhea, congestion, sore throat, or otalgia. CARDIOVASCULAR: Denies chest pain, palpitations, or edema. RESPIRATORY: Denies cough or dyspnea. GASTROINTESTINAL: Per HPI GENITOURINARY: Denies dysuria or hematuria. SKIN: Denies rash or itching. MUSCULOSKELETAL: Denies back pain, joint pain, or myalgia. NEUROLOGIC: Denies headache, numbness, dizziness, or weakness. PSYCHIATRIC: Denies anxiety or depression. [facility] Past Medical History Medical History Abnormal colonoscopy Acute blood loss anemia Alcohol use Asthma Chronic diarrhea Depression with anxiety Elevated liver enzymes Fatty liver HTN (hypertension) Morbid obesity with BMI of 45.0-49.9, adult Perianal pain Surgical History Surgical History H/O section times 2 H/O hemorrhoidectomy H/O tubal ligation History of colonoscopy Family History Family History Other No pertinent family history Social History Social History Social History: The patient lives with her significant other and has 2 children. She works for [employer] . Code status full code Smoking status: Never smoker Alcohol intake: current Drinks per week: 8 Alcohol use details: wine 3-4 days/week Substance use: never Substance use type: does not use Lack of Transportation: No Lack of Food: Never True Current Housing: I Have Housing Concerned About Future Housing: No Difficulty Paying Gas/Electric Bills: YES Difficulty Paying for Meds: No Currently Unemployed: No Education: High School Diploma/GED Difficulty w/ Childcare or Family Care: No Living arrangements: with family Gender identity (if verbalized by the patient): Female Spiritual care concerns: No Exam Narrative: GENERAL: Well-appearing, well-nourished, no physical limitations, and in no acute distress. HEAD: Normocephalic, atraumatic. EYES: Conjunctivae normal, PERRLA and EOMI. CHEST: Clear to auscultation. No respiratory distress. No wheezes rales or rhonchi. HEART: Regular rate and rhythm. No murmur heard. Normal peripheral pulses. ABDOMEN: Soft, left lower quadrant tenderness, nondistended, normal active bowel sounds. BACK: No CVA tenderness EXTREMITIES: Normal range of motion. No edema. No clubbing or cyanosis SKIN: Warm, dry, no rash. No noted wounds NEURO: No focal deficits.
[2022-11-26 12:35] LABS: Sodium 135 mmol/L (137-145)
[2022-11-26 12:36] LABS: Alanine Aminotransferase 96 U/L (6-35); Anion Gap 13 mmol/L (8-16); Aspartate Amino Transferase 208 U/L (14-36); Blood Urea Nitrogen 15 mg/dL (7-17); Calcium 8.5 mg/dL (8.4-10.2); Carbon Dioxide 18 mmol/L (22-30); Chloride 104 mmol/L (98-107); Estimated CRCL calculation 116 ml/min; Estimated Glomerular Filt Rate > 60; Glucose 98 mg/dL (65-110)
[2022-11-26 12:37] LABS: Albumin Level 4.7 g/dL (3.5-5.1); Alkaline Phosphatase 177 U/L (38-126)
[2022-11-26 13:43] LABS: Bilirubin,Total 0.5 mg/dL (0.2-1.3); Lipase 67 U/L (23-300)
[2022-11-26 14:32] LABS: Appearance Urine Clear (Clear); Bacteria Urine Rare /hpf; Bilirubin Urine Negative (Negative); Blood Urine 2+ (Negative); Color Urine Yellow (Yellow); Glucose Urine UA Negative (Negative); Ketones Urine Negative (Negative); Leukocyte Esterase Ur Trace LEU/UL (Negative); Need Manual Microscopic Reviewed; Nitrate Urine Negative (Negative); Non Pathogenic Casts 0-2; Protein Urine 1+ mg/dL (Negative); RBC Urine 0-2 /hpf (0-2); Squamous Epithelial Cell Urine None seen /hpf (Few); Urobilinogen Urine 0.2 mg/dL (<2.0); WBC Urine 51-100 /hpf; pH Urine 5.5 (5.0-9.0)
[2022-11-26 14:39] LABS: Add Urine Microscopic? YES
== END 2022-11-26 14:52 | disposition home or self-care (01) ==
PROVIDERS: Family Medicine; Emergency Provider Nurse Practitioner Family; PCP Family Medicine
DX: K58.9 Irritable bowel syndrome, unspecified (principal); R10.32 Left lower quadrant pain; R74.01 Elevation of levels of liver transaminase levels; J45.909 Unspecified asthma, uncomplicated; I10 Essential (primary) hypertension; F41.8 Other specified anxiety disorders; E66.01 Morbid (severe) obesity due to excess calories; Z68.43 Body mass index [BMI] 50.0-59.9, adult; K42.9 Umbilical hernia without obstruction or gangrene
CPT/HCPCS: 36415; 74177; 80053; 81001; 81025; 83690; 85025; 87086; 87088; 99284; Q9967

== ENCOUNTER 2022-12-24 11:50 | Outpatient (CLI) | payer OTHER, SELFPAY ==
--- NOTE | ~2022-12-24 | XR_ITS ---
EXAMINATION: XR knee LT 3V, XR tibia fibula LT 2V DATE: 12/24/2022 12:18 INDICATION: Left patellar pain extending through the left lower leg post fall 3 days prior TECHNIQUE: 1. Anteroposterior, sunrise and lateral views of the left knee were obtained. 2. AP and lateral views of the left lower leg were obtained. COMPARISON: None. FINDINGS: Alignment is normal. No fracture. Joint spaces are normal. No left knee or ankle joint effusion. Sof t tissues are unremarkable. IMPRESSION: 1. . Negative left knee and lower leg radiographs. Reviewed, dictated and finalized at location B. IMPRESSION: 1. . Negative left knee and lower leg radiographs.
== END 2022-12-24 11:51 | disposition home or self-care (01) ==
LOC: CHSIMG 11:52
PROVIDERS: PCP Family Medicine; Visit Provider Family Medicine
DX: M79.605 Pain in left leg (principal)
CPT/HCPCS: 73562; 73590

== ENCOUNTER 2023-10-01 11:15 | Emergency (ER) | payer OTHER, SELFPAY ==
--- NOTE | ~2023-10-01 | XR_ITS ---
EXAMINATION: XR foot RT min 3V DATE: 10/01/2023 13:05 INDICATION: Right forefoot pain TECHNIQUE: Dorsoplantar, two oblique and lateral views of the right foot were obtained. COMPARISON: None. FINDINGS: Alignment is normal. No fracture. Joint spaces are normal. No erosions or periosteal reaction. Small Achilles and plantar calcaneal spurs. Soft tissues are unremarkable. IMPRESSION: 1. Small Achilles and plantar calcaneal spurs. Otherwise unremarkable right foot radiographs. Reviewed, dictated and finalized at location B. IMPRESSION: 1. Small Achilles and plantar calcaneal spurs. Otherwise unremarkable right live t radiographs.
[2023-10-01 11:24] VITALS: BP 147/99; PULSE 87; RESP 16; TEMP 36.2; O2SAT 100
--- NOTE | 2023-10-01 13:42 | ED.GENADULT ---
HPI - General Adult General Chief complaint: Extremity Problem,Nontraumatic Stated complaint: right foot tingling, pain to toes Time Seen by Provider: 10/01/23 12:45 History of Present Illness HPI narrative: Patient is a 33-year-old female who presents ER with pain in her toes. Sudden onset over last couple days. Comes in waves. She thinks it may be from driving. Toes 3 through 5. No known trauma. No swelling to the leg. Related Data Home Medications Medication Instructions Recorded Confirmed albuterol sulfate 90 mcg/actuation 1 puff inhalation QID PRN Dyspnea 09/05/22 04/16/23 aerosol inhaler alprazolam 0.25 mg tablet 0.25 mg PO DAILY PRN Anxiety 09/05/22 04/16/23 buspirone 5 mg tablet 5 mg PO BID 09/05/22 04/16/23 fluoxetine 40 mg capsule 40 mg PO DAILY 09/05/22 04/16/23 omeprazole 20 mg capsule,delayed 20 mg PO DAILY 09/23/22 04/16/23 release Allergies Allergy/AdvReac Type Severity Reaction Status Date / Time No Known Allergies Allergy Verified 10/01/23 11:18 Review of Systems Constitutional: Constitutional: Reports no additional constitutional complaints Musculoskeletal: Musculoskeletal: Denies back pain, Reports arthralgias and Denies joint swelling Integumentary/Breasts: Skin/Breast: Reports system reviewed and no additional complaints, except as docu Neurologic: Reports system reviewed and no additional complaints, except as documented PMFSH Past Medical History Medical History (Updated 10/01/23 @ 13:45 by Janusz Douglas MD) Abnormal colonoscopy Acute blood loss anemia Alcohol use Asthma Chronic diarrhea Depression with anxiety Elevated liver enzymes Fatty liver HTN (hypertension) Internal hemorrhoids Irritable bowel syndrome with diarrhea Morbid obesity with BMI of 45.0-49.9, adult Perianal pain Surgical History Surgical History H/O section times 2 H/O hemorrhoidectomy H/O tubal ligation History of colonoscopy Family History Family History Other No pertinent family history Social History Social History Social History: The patient lives with her significant other and has 2 children. She works for [employer] . Code status full code Smoking status: Never smoker Alcohol intake: current Drinks per week: 8 Alcohol use details: wine 3-4 days/week Substance use: never Substance use type: does not use Lack of Transportation: No Lack of Food: Never True Current Housing: I Have Housing Concerned About Future Housing: No Difficulty Paying Gas/Electric Bills: YES Difficulty Paying for Meds: No Currently Unemployed: No Education: High School Diploma/GED Difficulty w/ Childcare or Family Care: No Living arrangements: with family Gender identity (if verbalized by the patient): Female Spiritual care concerns: No Exam Narrative: GENERAL: Well-appearing, well-nourished, and in no acute distress. HEAD: Normocephalic, atraumatic. HEART: Regular rate and rhythm. Normal peripheral pulses. EXTREMITIES: Normal range of motion. No edema. Mild tenderness the the MTPs of 3 through 5 on the right foot SKIN: Warm, dry, no rash. NEURO: No focal deficits. Alert and oriented x3. PSYCH: Normal mood and affect. Course Course Emergency Course: unremarkable imaging. Discharge home with anti-inflammatories. Not felt to be gout as they are not red hot and she is able ambulate. Vital Signs Vital signs: Vital Signs Temperature 97.1 F L 10/01/23 11:24 Pulse Rate 87 10/01/23 11:24 Respiratory Rate 16 10/01/23 11:24 Blood Pressure 147/99 H 10/01/23 11:24 Pulse Oximetry 100 10/01/23 11:24 Temperature 97.6 F 10/01/23 13:52 Pulse Rate 92 10/01/23 13:52 Respiratory Rate 17 10/01/23 13:52 Blood Pressure 145/98 H 10/01/23 13
[2023-10-01 13:52] VITALS: BP 145/98; PULSE 92; RESP 17; TEMP 36.4; O2SAT 100
[2023-10-01 14:41] LABS: Glucose Point of Care 103 mg/dl (65-105)
== END 2023-10-01 14:01 | disposition home or self-care (01) ==
LOC: ANHED 13:54
PROVIDERS: Emergency Provider Emergency Medicine; PCP Family Medicine
DX: M79.671 Pain in right foot (principal); J45.909 Unspecified asthma, uncomplicated; I10 Essential (primary) hypertension; E66.01 Morbid (severe) obesity due to excess calories; Z68.43 Body mass index [BMI] 50.0-59.9, adult; K58.0 Irritable bowel syndrome with diarrhea; F41.8 Other specified anxiety disorders
CPT/HCPCS: 73630; 82948; 99283

== ENCOUNTER 2024-04-01 09:58 | Outpatient (CLI) | payer OTHER, SELFPAY ==
--- NOTE | ~2024-04-01 | XR_ITS ---
CHEST RADIOGRAPH, PA AND LATERAL CLINICAL HISTORY: acute bronchitis unspec. . COMPARISON: 12/19/2020 TECHNIQUE: PA and lateral views of the chest. FINDINGS The cardiomediastinal silhouette is unremarkable. Increased opacification within the base of the left upper lobe, with air bronchograms distended with an infiltrate. The remainder of the lungs are clear. Visualized osseous structures and soft tissues are unremarkable. IMPRESSION: Focal infiltrate within the base of the left upper lobe, as detailed above Reviewed, dictated and finalized at location A.
== END 2024-04-01 09:59 | disposition home or self-care (01) ==
PROVIDERS: PCP Family Medicine; Visit Provider Family Medicine
DX: J20.9 Acute bronchitis, unspecified (principal); R91.8 Other nonspecific abnormal finding of lung field
CPT/HCPCS: 71046

== ENCOUNTER 2025-03-02 10:59 | Outpatient (CLI) | payer OTHER, SELFPAY ==
[2025-03-02 11:34] LABS: Strep Group A RT-PCR DETECTED (Negative)
[2025-03-02 12:11] LABS: Influenza A QL RT-PCR Negative (Negative); Influenza B QL RT-PCR Negative (Negative); RSV RNA, RT-PCR Negative (Negative); SARS-CoV-2 RNA PCR Negative (Negative)
== END 2025-03-02 11:00 | disposition home or self-care (01) ==
PROVIDERS: PCP Family Medicine; Visit Provider Family Medicine
DX: J06.9 Acute upper respiratory infection, unspecified (principal)
CPT/HCPCS: 87637; 87651

== ENCOUNTER 2025-05-12 13:44 | Outpatient (CLI) | payer OTHER, SELFPAY ==
[2025-05-12 14:24] LABS: Strep Group A RT-PCR DETECTED (Negative)
[2025-05-12 14:36] LABS: Influenza A QL RT-PCR Negative (Negative); Influenza B QL RT-PCR Negative (Negative); RSV RNA, RT-PCR Negative (Negative); SARS-CoV-2 RNA PCR Negative (Negative)
== END 2025-05-12 13:45 | disposition home or self-care (01) ==
LOC: CHSLAB 13:45
PROVIDERS: PCP Family Medicine; Visit Provider Family Medicine
DX: J02.9 Acute pharyngitis, unspecified (principal)
CPT/HCPCS: 87637; 87651